=== PATIENT | female | born 1975 | race Caucasian/White ===

== ENCOUNTER 2024-03-13 08:42 | Emergency (ER) | payer OTHER, BC, SELFPAY ==
[2024-03-13] VITALS (9 sets, daily range): BP systolic 90–117; BP diastolic 59–82; BMI 20.8
--- NOTE | 2024-03-13 09:00 | ED.GENMED ---
History of Present Illness
<Heather Alfred PA-C - Last Filed: 03/13/24 16:34>
General
Chief Complaint: Chest Pain
Source: patient
Exam Limitations: none
Time Seen by Provider: 03/13/24 09:00
Nursing documentation reviewed up to this point in time: agreed with
Travel History
Have you had any contact with someone who has COVID-19?: No
Do you have any symptoms of coronavirus? Fever > 100 degrees, chills, cough, shortness of breath, sore throat, loss of taste or smell, muscle aches, or headache?: No
History of Present Illness
History of Present Illness:
This is a 48 y/o female with a PMH of cardiomyopathy, SCAD presenting emergency department today with concerns of chest pain. Patient states that she feels the pain in the middle of her chest and she states that this pain is worse with
walking or when taking a deep breath. Patient also states that when she takes a deep breath she notes is a lot of coughing. Patient states that she does not feel necessarily sick, denies any other cough or cold-like symptoms, denies any other
fevers. Patient also states that is worse if she presses on the area. Patient denies shortness of breath, any recent long distance travel, any pain or swelling her legs, any family history of cardiac disease. In terms of her history of scad,
patient does not recall which inspector welded parts she saw in management she states that she did see someone from [place] and has since been cleared and no longer takes any medication daily. Patient states that the pain is worse with twisting. Patient
denies any history of trauma.
Past History
<Heather Alfred PA-C - Last Filed: 03/13/24 16:34>
Past History
ED Past Medical History: None
ED Past Surgical History: None
Social History
Tobacco: Non-smoker
Alcohol: None
Review of Systems
<Heather Alfred PA-C - Last Filed: 03/13/24 16:34>
Review of Systems
All Other Systems: ROS reviewed and negative except as documented in HPI and ROS
Phy Exam
<YESSY Stone Last Filed: 03/13/24 16:34>
Physical Exam
Physical Exam:
General: Patient is well appearing and in no acute distress; non-toxic
Skin: Warm and dry, no rashes or lesions
Head: Normocephalic, atraumatic
Eyes: Sclera non-icteric. EOMs intact. PERRLA.
Cardiac: Regular rate and rhythm, no murmurs.
Peripheral Vascular: No lower extremity swelling or edema
Pulm: Normal respiratory, no tachypnea. Deep breaths elicits coughing.
Abdomen: No abdominal tenderness to palpation
Musculoskeletal: There is moderate tenderness palpation of the external chest wall over the sternum. No tenderness over the ribs, no crepitus.
Neuro: CN II-XII intact, no focal neurologic deficits.
Psychiatric: Appropriate mood and affect.
Scores
<Heather Alfred PA-C - Last Filed: 03/13/24 16:34>
Heart Score for Chest Pain Patients
STEMI patient?: No
History: Slightly or Non-Suspicious
ECG: Normal
Age: >45 - <65 years
Risk Factors: >/= 3 Risk Factors or History of CAD
Troponin: </= Normal Limit
Heart Score for Chest Pain Patients: 3
Heart Score Risk: 2.5% MACE over next 6 weeks
<Karson Aggarwal DO - Last Filed: 03/13/24 09:57>
Heart Score for Chest Pain Patients
Heart Score for Chest Pain Patients: 3
Heart Score Risk: 2.5% MACE over next 6 weeks
Course
<Heather Alfred PA-C - Last Filed: 03/13/24 16:34>
Orders/Labs/Results
Orders:
Orders
03/13/24
Electrocardiogram (*1) Stat
Comment: DONE EMR
03/13/24 09:09
Comprehensive Metabolic Panel Urgent
03/13/24 09:10
Complete Blood Count/With Diff Urgent
Troponin I Urgent
03/13/24 09:20
D-Dimer Urgent
CR Chest - 2 Views Urgent
Comment:
Reason For Exam: shortness of breath, chest pain
03/13/24 09:53
CT Chest Pe Study Urgent
Comment:
Reason For Exam: chest pain, elevated ddimer
03/13/24 11:19
CT Abd/pel W Iv And Oral Contr Urgent
Comment:
Reason For Exam: splenomegaly, lymphadenopathy
Iohexol [Omnipaque] See Protocol PO NOW STA
03/13/24 14:21
Electrocardiogram (*1) Urgent
Reason for Study: Chest Pain
EKG- Treatment ONCE
03/13/24 14:44
Troponin I Urgent
Abnormal Lab Results
03/13/24 03/13/24 03/13/24
09:09 09:10 09:20
RBC 3.63 L 10^6/uL
(4.20-5.40)
Hgb 10.6 L g/dL
(12.0-16.0)
Hct 31.7 L %
(37.0-47.0)
MPV 11.8 H fL
(7.4-10.4)
Absolute Lymphs (auto) 0.9 L 10^3/uL
(1.2-3.4)
Lymphocytes % 15.9 L %
(20.5-51.1)
D-Dimer 1.80 H ug/mlFEU
(0.00-0.50)
Total Protein 6.1 L g/dl
(6.3-8.2)
Albumin 3.4 L g/dl
(3.5-5.0)
03/13/24 09:10
03/13/24 09:09
Vital Signs
Initial and Last Documented VS:
Initial Vital Signs
Temp Pulse Resp BP Pulse Ox
98.0 F 95 18 117/75 97
03/13/24 08:44 03/13/24 08:44 03/13/24 08:44 03/13/24 08:44 03/13/24 08:44
Last Documented Vital Signs
Temp Pulse Resp BP Pulse Ox
98.0 F 74 27 97/68 98
03/13/24 08:44 03/13/24 15:45 03/13/24 15:45 03/13/24 15:00 03/13/24 15:45
<Karson Aggarwal, DO - Last Filed: 03/13/24 09:57>
Orders/Labs/Results
Orders:
Orders
03/13/24
Electrocardiogram (*1) Stat
Comment: DONE EMR
03/13/24 09:09
Comprehensive Metabolic Panel Urgent
03/13/24 09:10
Complete Blood Count/With Diff Urgent
Troponin I Urgent
03/13/24 09:20
D-Dimer Urgent
CR Chest - 2 Views Urgent
Comment:
Reason For Exam: shortness of breath, chest pain
03/13/24 09:53
CT Chest Pe Study Urgent
Comment:
Reason For Exam: chest pain, elevated ddimer
03/13/24 11:19
CT Abd/pel W Iv And Oral Contr Urgent
Comment:
Reason For Exam: splenomegaly, lymphadenopathy
Iohexol [Omnipaque] See Protocol PO NOW STA
03/13/24 14:21
Electrocardiogram (*1) Urgent
Reason for Study: Chest Pain
EKG- Treatment ONCE
03/13/24 14:44
Troponin I Urgent
Abnormal Lab Results
03/13/24 03/13/24 03/13/24
09:09 09:10 09:20
RBC 3.63 L 10^6/uL
(4.20-5.40)
Hgb 10.6 L g/dL
(12.0-16.0)
Hct 31.7 L %
(37.0-47.0)
MPV 11.8 H fL
(7.4-10.4)
Absolute Lymphs (auto) 0.9 L 10^3/uL
(1.2-3.4)
Lymphocytes % 15.9 L %
(20.5-51.1)
D-Dimer 1.80 H ug/mlFEU
(0.00-0.50)
Total Protein 6.1 L g/dl
(6.3-8.2)
Albumin 3.4 L g/dl
(3.5-5.0)
03/13/24 09:10
03/13/24 09:09
Vital Signs
Initial and Last Documented VS:
Initial Vital Signs
Temp Pulse Resp BP Pulse Ox
98.0 F 95 18 117/75 97
03/13/24 08:44 03/13/24 08:44 03/13/24 08:44 03/13/24 08:44 03/13/24 08:44
Last Documented Vital Signs
Temp Pulse Resp BP Pulse Ox
98.0 F 74 27 97/68 98
03/13/24 08:44 03/13/24 15:45 03/13/24 15:45 03/13/24 15:00 03/13/24 15:45
Kellylt;Heather Alfred PA-C - Last Filed: 03/13/24 16:34>
MDM/Problems Addressed
Differential Diagnosis Includes:
Differentials include ACS, musculoskeletal sprain/strain, costochondritis, pneumothorax, pneumonia, pulmonary embolus
MDM/Problems Addressed:
Chest pain
Chronic conditions affecting care:
Cardiomyopathy , spontaneous coronary artery dissection, iron deficiency anemnia
Acute Exacerbation and/or Progression of Chronic Illness:
hx of CAD
<Heather Alfred PA-C - Last Filed: 03/13/24 16:34>
*Pulse Oximetry
Patient hypoxic: no
*EKG
Interpreted by ED Provider?: Yes
EKG Intrepretation Date: 03/13/24
Interpretation: normal
Comparison EKG: changes noted (no longer non specific ST segment changes)
Heart Rate: 82
Rate: normal
Rhythm: sinus
[place]: normal axis
Interval: normal interval, normal QT interval and normal WA interval
QRS Pattern: normal QRS
Ischemia: no ischemia
*Critical Care Note
Total Time (30-74mins, 75-104mins- exclusive of procedures): Not Applicable
Data Reviewed
Review of Other/Old Records Reveals: Records (Reviewed ER physician documentation from 07/17/2019)
Source: patient
<Heather Alfred PA-C - Last Filed: 03/13/24 16:34>
Patient Management
Escalation/DeEscalation of care consider admission/obs:
This is a 48 y/o female with a PMH of cardiomyopathy, SCAD presenting emergency department today with concerns of chest pain. Patient states that she feels the pain in the middle of her chest and she states that this pain is worse with
walking or when taking a deep breath. Her vitals are stable. She is well-appearing on exam, does have tenderness palpation external chest wall, no murmurs heard. No lower extremity lymphedema, breath sounds equal on both sides bilaterally with no
adventitious lung sounds. D-dimer elevated, proceeded with CT of the chest which was negative for PE but did demonstrate concerning splenomegaly. CT of the abdomen was ordered for follow-up which demonstrated a retroperitoneal lymph node mass
concerning for lymphoma. Discussed these findings with patient, she will follow up urgently with heme-onc. I discussed using ibuprofen to help manage her pain and to follow-up with cardiology should her symptoms persist. Patient stable for
discharge. Repeat troponin not elevated, repeat EKG normal sinus.
<Heather Alfred PA-C - Last Filed: 03/13/24 16:34>
Update Note
Update Note:
CT chest concerning for splenomegaly and lymphadenopathy. CT abdomen obtained.

2:55 pm--updated on CT abdomen findings, there appears to be a bulky retroperitoneal lymph node mass most consistent with lymphoma until proven otherwise
ED Attending Note
<Heather Alfred PA-C - Last Filed: 03/13/24 16:34>
-
Portions of this chart may have been created with voice recognition software.� Occasional wrong word or��sound alike� substitutions may have occurred due to the inherent limitations of voice recognition software.
<Karson Aggarwal, - Last Filed: 03/13/24 09:57>
ED Attending Note
Patient seen and examined by attending physician: Yes
I performed a history and physical exam of patient and discussed management with resident, I reviewed resident's note and agree with documented findings and plan of care.: Yes
ED Attending Note:
I reviewed and agree with history and treatment plan by Heather Alfred. My exam revealed
Physical Exam
General: no apparent distress, not acutely ill
Neck: supple. no meningeal signs. normal posterior pharynx
Heart: s1/s2 regular rate and rhythm, no murmur. equal radial
pulses.
HEENT: Pupils equal round reactive to light, EOMI
Lungs: no acute respiratory distress. clear bilaterally, chest wall tender to palpation, reproducing pain
Abdomen: normal bowel sounds. not tender. no CVAT
Neuro: alert and oriented. no focal neurological deficits cranial nerves II through XII intact
Skin: no rash
Psychiatric: well kept. interactive and cooperative
Extremities: no edema. no calf tenderness. negative homans. good distal pulses
Discharge Plan
Departure
Patient Disposition: Home (Routine Discharge)
Date of Disposition: 03/13/24
Time of Disposition: 15:58
Patient with high blood pressure during this ER visit?: No
Condition: Good
Discharge Problem:
Chest pain, Neoplasm of retroperitoneal lymph nodes
Instructions: Chest pain
Prescriptions:
No Action
pediatric multivitamin no.17 1 TABLET tablet,chewable
1 ea PO DAILY
atorvastatin 80 MG tablet
80 mg PO QPM Qty: 30 3RF
clopidogrel 75 MG tablet
75 mg PO DAILY Qty: 30 11RF
nitroglycerin 0.4 MG tablet, sublingual
0.4 mg sublingual Q5MPRN PRN (Reason: CHEST PAIN) Qty: 1 0RF
aspirin 81 MG tablet,chewable
81 mg PO DAILY Qty: 30 0RF
metoprolol tartrate 25 MG tablet
25 mg PO BID Qty: 60 3RF
Referrals:
Criselda Rizzo DO [Active] - Call in 1-3 days for appt
NONE,* [Family Provider] -
Kurt Rojas MD [Active] - Call in 1-3 days for appt
Activity Restrictions/Additional Instructions:
PLEASE CALL DR. RIZZO OFFICE TOMORROW and YOUR PRIMARY CARE PROVIDER:
Please call the heme onc office and say you were seen here in the emergency department. Your CT scan of the abdomen and pelvis demonstrates enlargement of the spleen and enlarged lymph nodes in the abdomen, biopsy and PET scan is recommended for
follow up.
Please follow up with your inspector welded parts should your symptoms persist.
PLEASE RETURN TO THE EMERGENCY DEPARTMENT FOR ANY CONCERNS
Interventions
Interventions:
*Risk Screen - Suicide Last Done: 03/13/24 08:44
*General Assessment Last Done: 03/13/24 09:23
*Neglect/Abuse Screening Last Done: 03/13/24 08:44
ED- Fall Risk Assessment Last Done: 03/13/24 16:28
*ED COVID-19 Vaccine History Last Done: 03/13/24 08:44
*Nursing Disposition Last Done: 03/13/24 16:28
ED- Cardiac Assessment Last Done: 03/13/24 09:23
Discharge Date and Time
Print Language: ALBANIAN
[2024-03-13 09:41] LABS: ALT (SGPT) 15 U/L (0-35); AST (SGOT) 25 U/L (14-36); Albumin 3.4 g/dl (3.5-5.0); Alkaline Phosphatase 62 U/L (38-126); Blood Urea Nitrogen 10 mg/dl (7-17); Calcium 9.1 mg/dl (8.4-10.2); Carbon Dioxide 28 mmol/L (22-30); Chloride 105 mmol/L (98-107); Estimated Creatinine Clearance 102 ml/min; Glucose 86 mg/dl (70-99); Potassium 3.6 mmol/L (3.5-5.1); Sodium 140 mmol/L (135-145); Total Bilirubin 0.6 mg/dl (0.2-1.3); Total Protein 6.1 g/dl (6.3-8.2); eGFR > 60.00
[2024-03-13 09:51] LABS: Troponin I < 0.012 ng/ml
[2024-03-13 10:00] LABS: % Basophils 0.5 % (0-2); % Eosinophils 5.2 % (0-6); % Immature Granulocytes 0.3 % (0-0.5); % Lymphocytes 15.9 % (20.5-51.1); % Monocytes 9.1 % (1.7-9.3); Absolute Eosinophils 0.3 10^3/uL (0-0.7); Absolute Lymphocytes 0.9 10^3/uL (1.2-3.4); Absolute Monocytes 0.5 10^3/uL (0.1-0.6); Hematocrit 31.7 % (37.0-47.0); Hemoglobin 10.6 g/dL (12.0-16.0); Mean Corp Hgb Conc. 33.4 g/dL (33.0-37.0); Mean Corpuscular Hgb 29.2 pg (27.0-31.0); Mean Corpuscular Volume 87.3 fL (81.0-99.0); Mean Platelet Volume 11.8 fL (7.4-10.4); Nucleated Red Blood Cells % 0 %; Platelet Count 178 10^3/uL (130-400); Red Blood Cell Count 3.63 10^6/uL (4.20-5.40); Red Cell Dist. Width 12.7 % (11.5-14.5); White Blood Cell Count 5.8 10^3/uL (4.8-10.8)
[2024-03-13] MEDS: OMNIPAQUE 50 ML PO (11:39)
[2024-03-13 15:40] LABS: Troponin I < 0.012 ng/ml
== END 2024-03-13 16:30 | disposition home or self-care (01) ==
LOC: EMR 08:42
PROVIDERS: Physician Assistant; EMERGENCY PHYSICIAN Emergency Medicine
DX: R07.89 Other chest pain (principal); D49.0 Neoplasm of unspecified behavior of digestive system; I25.10 Atherosclerotic heart disease of native coronary artery without angina pectoris; I25.2 Old myocardial infarction; I25.42 Coronary artery dissection
CPT/HCPCS: 99284; 71046; 71275; 74177; 80053; 84484; 85025; 85379; 93005; Q9967

== ENCOUNTER 2024-04-10 06:28 | Day surgery (SDC) | payer OTHER, BC, SELFPAY ==
[2024-04-02 12:20] VITALS: BMI 20.7
[2024-04-10] VITALS (8 sets, daily range): BP systolic 100–122; BP diastolic 59–82; BMI 20.7
[2024-04-10] MEDS: TYLENOL 1000 MG PO (11:10)
[2024-04-10] MEDS: NORMOSOL-R 1000 IV (11:22)
[2024-04-10 18:06] LABS: Hematocrit 28.2 % (37.0-47.0); Hemoglobin 9.9 g/dL (12.0-16.0); Mean Corp Hgb Conc. 35.1 g/dL (33.0-37.0); Mean Corpuscular Hgb 28.6 pg (27.0-31.0); Mean Corpuscular Volume 81.5 fL (81.0-99.0); Platelet Count 105 10^3/uL (130-400); Red Blood Cell Count 3.46 10^6/uL (4.20-5.40); White Blood Cell Count 6.2 10^3/uL (4.8-10.8)
== END 2024-04-10 19:27 | disposition home or self-care (01) ==
LOC: SDS 06:28
PROVIDERS: ATTENDING PHYSICIAN Surgery
DX: R59.0 Localized enlarged lymph nodes (principal); C85.96 Non-Hodgkin lymphoma, unspecified, intrapelvic lymph nodes; C85.93 Non-Hodgkin lymphoma, unspecified, intra-abdominal lymph nodes
CPT/HCPCS: 38570; 88305; 36415; 85027; 86850; 86900; 86901; 88333; 88341; 88342; 88365

== ENCOUNTER 2024-04-15 12:53 | Emergency (ER) | payer OTHER, BC, SELFPAY ==
[2024-04-15 13:52] VITALS: BMI 18.5
--- NOTE | 2024-04-15 13:56 | EDRN ---
Gilberto SMART in room w/ pt.
--- NOTE | 2024-04-15 14:01 | ED.GENMED ---
History of Present Illness
<Sofi Wang PA-C - Last Filed: 04/16/24 08:53>
General
Chief Complaint: Abdominal Pain
Source: patient and records
Time Seen by Provider: 04/15/24 13:51
History of Present Illness
History of Present Illness:
48yoF currently being worked up for lymphoma presenting with her for evaluation of abdominal pain. Patient underwent robotic retroperitoneal lymph node biopsy and excision on 04/10/[address] Scanlon. There was mild hemoperitoneum during
the procedure and she was discharged the same day. The procedure was performed due to retroperitoneal lymphadenopathy. Patient is presenting today with generalized abdominal pain which is severe at times. She was prescribed oxycodone which she
discontinued due to side effects. She has been taking Advil for her pain without any significant improvement. Patient had 2-3 episodes of vomiting today. She is otherwise asymptomatic and denies any fevers, chills, dysuria, diarrhea,
constipation, chest pain.
Past History
<Sofi Wang PA-C - Last Filed: 04/16/24 08:53>
Past History
ED Past Medical History: None
ED Past Surgical History: None
Social History
Tobacco: Non-smoker
Alcohol: None
Phy Exam
<Sofi Wang PA-C - Last Filed: 04/16/24 08:53>
Physical Exam
Physical Exam:
Appears uncomfortable, non-toxic
General Physical Exam
General Presentation: moderate distress
General age: appears stated age
General Skin: warm and dry
General Habitus: normal
General Mental: alert
General Hydration: appears well hydrated
Cardiovascular Exam
Cardiovascular Exam: regular rate/rhythm and no murmur
Pulmonary Exam
Pulmonary Exam: lungs clear, no respiratory distress, no crackles and no wheezing
Gastrointestinal Exam
Gastrointestinal Exam: soft, non distended, guarding (voluntary) and other (Surgical incisions c/d/i)
Palpation: left upper quadrant: Severe tenderness and right upper quadrant: Severe tenderness
Course
Kellylt;Sofi Wang PA-C - Last Filed: 04/16/24 08:53>
Orders/Labs/Results
Orders:
Orders
04/15/24 13:59
0.9% Sodium Chloride 1000 ml [Nss] 1,000 ml IV BOLUS
HYDROmorphone [Dilaudid] 0.5 mg IV NOW STA
Ondansetron Injectable [Zofran] 4 mg IV NOW STA
04/15/24 14:00
CT Abd/pelvis W Iv Cont Urgent
Comment:
Reason For Exam: Generalized abd pain, s/p lymph node biopsy
Test Result ONCE
04/15/24 14:07
Complete Blood Count/With Diff Urgent
Comprehensive Metabolic Panel Urgent
HCG, Serum Qualitative Screen Urgent
Lipase Urgent
04/15/24 14:22
Lactate Level [Lactic Acid] Urgent
04/15/24 16:56
HYDROmorphone [Dilaudid] 1 mg .ROUTE .STK-MED ONE
04/15/24 16:58
HYDROmorphone [Dilaudid] 1 mg IV NOW STA
Abnormal Lab Results
04/15/24
14:07
RBC 3.75 L 10^6/uL
(4.20-5.40)
Hgb 10.5 L g/dL
(12.0-16.0)
Hct 31.6 L %
(37.0-47.0)
MPV 12.0 H fL
(7.4-10.4)
Absolute Monos (auto) 0.7 H 10^3/uL
(0.1-0.6)
Lymphocytes % 17.3 L %
(20.5-51.1)
Eosinophils % 7.1 H %
(0-6)
Carbon Dioxide 31 H mmol/L
(22-30)
Total Protein 6.1 L g/dl
(6.3-8.2)
04/15/24 14:07
04/15/24 14:07
Vital Signs
Initial and Last Documented VS:
Initial Vital Signs
Temp Pulse Pulse Ox
98.2 F 96 97
04/15/24 12:58 04/15/24 12:58 04/15/24 12:58
Last Documented Vital Signs
Temp Pulse Resp BP Pulse Ox
98.2 F 91 14 120/69 99
04/15/24 12:58 04/15/24 18:01 04/15/24 18:01 04/15/24 18:01 04/15/24 18:01
<Kwesi Howe PA-C - Last Filed: 04/15/24 22:52>
Orders/Labs/Results
Orders:
Orders
04/15/24 13:59
0.9% Sodium Chloride 1000 ml [Nss] 1,000 ml IV BOLUS
HYDROmorphone [Dilaudid] 0.5 mg IV NOW STA
Ondansetron Injectable [Zofran] 4 mg IV NOW STA
04/15/24 14:00
CT Abd/pelvis W Iv Cont Urgent
Comment:
Reason For Exam: Generalized abd pain, s/p lymph node biopsy
Test Result ONCE
04/15/24 14:07
Complete Blood Count/With Diff Urgent
Comprehensive Metabolic Panel Urgent
HCG, Serum Qualitative Screen Urgent
Lipase Urgent
04/15/24 14:22
Lactate Level [Lactic Acid] Urgent
04/15/24 16:56
HYDROmorphone [Dilaudid] 1 mg .ROUTE .STK-MED ONE
04/15/24 16:58
HYDROmorphone [Dilaudid] 1 mg IV NOW STA
Abnormal Lab Results
04/15/24
14:07
RBC 3.75 L 10^6/uL
(4.20-5.40)
Hgb 10.5 L g/dL
(12.0-16.0)
Hct 31.6 L %
(37.0-47.0)
MPV 12.0 H fL
(7.4-10.4)
Absolute Monos (auto) 0.7 H 10^3/uL
(0.1-0.6)
Lymphocytes % 17.3 L %
(20.5-51.1)
Eosinophils % 7.1 H %
(0-6)
Carbon Dioxide 31 H mmol/L
(22-30)
Total Protein 6.1 L g/dl
(6.3-8.2)
04/15/24 14:07
04/15/24 14:07
Vital Signs
Initial and Last Documented VS:
Initial Vital Signs
Temp Pulse Pulse Ox
98.2 F 96 97
04/15/24 12:58 04/15/24 12:58 04/15/24 12:58
Last Documented Vital Signs
Temp Pulse Resp BP Pulse Ox
98.2 F 91 14 120/69 99
04/15/24 12:58 04/15/24 18:01 04/15/24 18:01 04/15/24 18:01 04/15/24 18:01
Kellylt;Sofi Wang PA-C - Last Filed: 04/16/24 08:53>
MDM/Problems Addressed
Differential Diagnosis Includes:
48yoF here with abdominal pain. Recent retroperitoneal lymph node biopsy/excision 5 days ago. Also c/o vomiting. She is afebrile and hemodynamically stable. She appears uncomfortable but is non-toxic. There is voluntary guarding on abdominal exam.
Differential diagnosis includes but is not limited to: postoperative pain, postoperative hematoma/infection, cancer related pain, SBO
Initial ED plan: Check abdominal labs, lactate, HCG, and CT abdomen. IV Dilaudid, Zofran, and fluid bolus for symptoms.
<Kwesi Howe PA-C - Last Filed: 04/15/24 22:52>
*Critical Care Note
Total Time (30-74mins, 75-104mins- exclusive of procedures): Not Applicable
<Kwesi Howe PA-C - Last Filed: 04/15/24 22:52>
Update Note
Update Note:
Assumed care of this patient from Sofi Wang PA-C pending CT scan.
Scan results w/o obvious findings to explain uncontrolled pain. Has received 1.5mg IV hydromorphone with occasional relief but remains in pain. Unclear etiology. Discussed options of admit for pain control and further workup vs discharge on further
opiate therapy. As PO oxycodone has not provided her w/ relief, pt opts for admission. Will admit to hospitalist service.
D/W hospitalist, not accepting admission due to lack of medical need. Will d/c on 4mg hydromorphone, recommend onc f/u for pain discussion
ED Attending Note
<Sofi Wang PA-C - Last Filed: 04/16/24 08:53>
-
Portions of this chart may have been created with voice recognition software.� Occasional wrong word or��sound alike� substitutions may have occurred due to the inherent limitations of voice recognition software.
Discharge Plan
Departure
Patient Disposition: Home (Routine Discharge)
Date of Disposition: 04/15/24
Time of Disposition: 18:09
Patient with high blood pressure during this ER visit?: No
Discharge Problem:
Intractable abdominal pain, Lymphadenopathy, retroperitoneal
Instructions: Abdominal Pain
Prescriptions:
New
ondansetron 4 mg tablet,disintegrating
4 mg PO TIDPRN PRN (Reason: nausea/vomiting) Qty: 20 0RF
hydromorphone 4 mg tablet
4 mg PO Q6H PRN (Reason: Pain) Qty: 20 0RF
Referrals:
NONE,* [Family Provider] -
Activity Restrictions/Additional Instructions:
Follow-up with your oncology team regarding further pain management
Interventions
Interventions:
*Risk Screen - Suicide Last Done: 04/15/24 12:58
*General Assessment Last Done: 04/15/24 12:58
*Neglect/Abuse Screening Last Done: 04/15/24 12:58
ED- Fall Risk Assessment Last Done: 04/15/24 13:53
*ED COVID-19 Vaccine History Last Done: 04/15/24 13:53
*Nursing Disposition Last Done: 04/15/24 19:05
KL-Fdvcrr-Yedkcvtlct Assessment Last Done: 04/15/24 14:00
Discharge Date and Time
Discharge Date/Time: 04/15/24 19:06
Print Language: MALAGASY
[2024-04-15] MEDS: NSS 1000 IV (14:17)
[2024-04-15] MEDS: ZOFRAN 4 MG IV (14:17)
[2024-04-15] MEDS: DILAUDID 0.5 MG IV (14:17)
[2024-04-15 14:28] LABS: HCG, Serum Qualitative Screen Negative
[2024-04-15 14:34] LABS: ALT (SGPT) 20 U/L (0-35); AST (SGOT) 32 U/L (14-36); Albumin 3.7 g/dl (3.5-5.0); Alkaline Phosphatase 76 U/L (38-126); Blood Urea Nitrogen 10 mg/dl (7-17); Calcium 8.9 mg/dl (8.4-10.2); Carbon Dioxide 31 mmol/L (22-30); Chloride 103 mmol/L (98-107); Estimated Creatinine Clearance 103 ml/min; Glucose 98 mg/dl (70-99); Lipase 63 U/L (23-300); Potassium 4.2 mmol/L (3.5-5.1); Sodium 137 mmol/L (135-145); Total Bilirubin 0.6 mg/dl (0.2-1.3); Total Protein 6.1 g/dl (6.3-8.2); eGFR > 60.00
[2024-04-15 14:40] VITALS: BP 118/71
[2024-04-15 14:47] LABS: Lactic Acid 0.8 mmol/L (0.7-2.0)
[2024-04-15 15:00] LABS: % Basophils 0.4 % (0-2); % Eosinophils 7.1 % (0-6); % Immature Granulocytes 0.4 % (0-0.5); % Lymphocytes 17.3 % (20.5-51.1); % Monocytes 9.3 % (1.7-9.3); % Neutrophils 65.5 % (42.2-75.2); Absolute Eosinophils 0.5 10^3/uL (0-0.7); Absolute Lymphocytes 1.2 10^3/uL (1.2-3.4); Absolute Monocytes 0.7 10^3/uL (0.1-0.6); Absolute Neutrophils 4.6 10^3/uL (1.4-6.5); Hematocrit 31.6 % (37.0-47.0); Hemoglobin 10.5 g/dL (12.0-16.0); Mean Corp Hgb Conc. 33.2 g/dL (33.0-37.0); Mean Corpuscular Volume 84.3 fL (81.0-99.0); Nucleated Red Blood Cells % 0 %; Platelet Count 177 10^3/uL (130-400); Red Blood Cell Count 3.75 10^6/uL (4.20-5.40); Red Cell Dist. Width 13.4 % (11.5-14.5)
[2024-04-15 16:45] VITALS: BP 128/70
--- NOTE | 2024-04-15 16:49 | EDRN ---
Pt returned from [facility] w/ assist of spouse.
--- NOTE | 2024-04-15 16:53 | EDRN ---
Pt is in extreme L flank pain at this time (one of the biopsy sites). Mandi SMART was notified and putting in for pain medication at this time. Pt is awaiting CT results at this time.
[2024-04-15 16:55] VITALS: BP 123/85
[2024-04-15] MEDS: DILAUDID 1 MG IV (16:58)
--- NOTE | 2024-04-15 17:57 | EDRN ---
Pt voiced to me a fear of discharge and pain continuing in the severity that it was prior to coming to ER. Mandi SMART in to see pt and pt voiced this fear to him as well.
[2024-04-15 18:01] VITALS: BP 120/69
== END 2024-04-15 19:06 | disposition home or self-care (01) ==
LOC: EMR 12:53
PROVIDERS: Physician Assistant; EMERGENCY PHYSICIAN Emergency Medicine
DX: R10.84 Generalized abdominal pain (principal); R59.0 Localized enlarged lymph nodes
CPT/HCPCS: 99284; 96374; 96375; 96376; 96361; 74177; 80053; 83605; 83690; 84703; 85025; Q9967

== ENCOUNTER 2024-04-17 23:38 | Inpatient (IN) | payer OTHER, BC, SELFPAY ==
[2024-04-17 19:59] VITALS: BP 124/86; BMI 20.3
[2024-04-17 20:55] VITALS: BP 130/85
[2024-04-17 22:04] VITALS: BP 130/85
--- NOTE | 2024-04-17 22:22 | ED.GENMED ---
History of Present Illness
General
Chief Complaint: Generalized Pain
Source: patient, spouse, previous radiology exam (CT abdomen pelvis from 2 days ago) and previous hospital records (ED visit from 2 days ago for similar complaint.)
Exam Limitations: none
Time Seen by Provider: 04/17/24 22:06
Nursing documentation reviewed up to this point in time: agreed with
History of Present Illness
History of Present Illness:
This is a 48-year-old woman who has history of cardiomyopathy in 2008 as well as spontaneous coronary artery dissection 2018. She complains of several week history of progressive generalized abdominal as well as generalized back pain,
left flank pain that has been slowly progressive over the past several weeks. Found to have intra-abdominal as well as retroperitoneal adenopathy on CT abdomen pelvis during ED visit March 13 when she presented for chest pain. She has been
following with oncology, Dr. Us and underwent retroperitoneal lymph node biopsy on April 10.
Pathology report returned today revealing large B-cell lymphoma.
She had been prescribed Oxy IR 10 mg tablets April 05 by her oncologist but reports no improvement in pain with oxycodone. No relief with Advil as well.
She was evaluated in this ED just 2 days ago with complaints of severe abdominal as well as back pain accompanied with intermittent nausea and vomiting. Laboratory studies unremarkable. Mild anemia slightly improved from previous. Normal lactic
acid.
CT abdomen pelvis 2 days ago showing massive intra-abdominal as well as retroperitoneal adenopathy.
She was afforded mild to moderate relief during ED visit 2 days ago with IV Dilaudid and was discharged to home with a prescription for Dilaudid 4 mg tablets which unfortunately are unavailable at her local [facility] and apparently unavailable at all
other nearby [facility] pharmacies.
With persistent, worsening pain, persistent nausea, poor oral intake she has been sent to the ED by her oncologist for acute hospitalization for pain control and plan to initiate further workup and treatment for lymphoma.
She has not had a fever nor chills. She does admit to some constipation, thus far no improvement with once daily MiraLAX. No dysuria urgency or hematuria. She denies rectal pain or pressure.
Past History
Past History
ED Past Medical History: Cancer (Large B-cell lymphoma), [place] (July 2019 related to spontaneous coronary artery dissection) and Other ( cardiomyopathy 2008.)
ED Past Surgical History: Cardiac (Cardiac catheterization July 2019 showing SCAD of circumflex) and Other (Retroperitoneal lymph node biopsy April 10, 2024)
Social History
Tobacco: Non-smoker
Alcohol: None
Drug: None
Personal:
Living: with family
Employment: Employed
Family History
Family History: Diabetes (Father)
Phy Exam
Physical Exam
Physical Exam:
GENERAL: 48-year-old woman appears her stated age, awake and alert, appears in mild to moderate distress related to pain. Intermittently wincing in pain and grabbing at her left posterior flank region. Easily communicative. Emesis basin at the
ready. is accompanying.
EYE: anicteric
NECK: Supple, nontender, no meningismus, no significant adenopathy.
ENT: posterior pharynx is clear, oral mucosa is mildly to moderately dry. No rhinorrhea.
CARDIAC: Regular rate and rhythm. no murmur.
LUNGS: Splinting and wincing in pain with attempted deep inspiration. No respiratory distress. Mildly decreased breath sounds at right base otherwise clear to auscultation.
ABDOMEN: Minimally distended, mildly firm with exquisite tenderness generalized to the mid upper abdomen, no rebound nor guarding. Moderate left CVA tenderness with percussion. Without focal tenderness, normoactive BS.
NEUROLOGICAL: Alert and oriented x3, no focal neuro deficits.
SKIN: Warm and dry, normal color, skin intact. No rash.
MUSCULOSKELETAL: No C/C/E. peripheral pulses are full and equal b/l. No palpable tenderness.
PSYCH: Normal and appropriate interaction.
Course
Orders/Labs/Results
Orders:
Orders
04/17/24 22:21
0.9% Sodium Chloride 1000 ml [Nss] 1,000 ml IV BOLUS
HYDROmorphone [Dilaudid] 1 mg IV NOW STA
Ondansetron Injectable [Zofran] 4 mg IV NOW STA
04/17/24 22:39
Comprehensive Metabolic Panel Urgent
Vital Signs
Initial and Last Documented VS:
Initial Vital Signs
Temp Pulse Resp BP Pulse Ox
98.5 F 95 18 124/86 96
04/17/24 19:59 04/17/24 19:59 04/17/24 19:59 04/17/24 19:59 04/17/24 19:59
Last Documented Vital Signs
Temp Pulse Resp BP Pulse Ox
98.5 F 89 18 131/91 96
04/17/24 19:59 04/17/24 22:04 04/17/24 22:04 04/17/24 22:39 04/17/24 22:04
MDM/Problems Addressed
Differential Diagnosis Includes:
Patient presents with progressive severe/intractable abdominal as well as back pain. Progressive over the past month, severe and unrelenting over the past week or so.
CT abdomen pelvis showing massive intra-abdominal as well as retroperitoneal bulky adenopathy with lymph node biopsy 1 week ago resulted today showing large B-cell lymphoma.
No improvement in pain with oxycodone 10 mg nor ibuprofen.
Mild improvement in pain with IV Dilaudid however Dilaudid tablets at least 4 mg tablets not available at [facility] pharmacies.
She has had persistent nausea, intermittent vomiting and clinically appears mildly to moderately dehydrated.
Laboratory studies unremarkable 2 days ago save for mild but improving anemia. Will recheck CMP.
Will initiate IV fluids, IV Dilaudid, IV Zofran and plan to admit to hospitalist service for continued pain control.
Due to rapid progression of symptoms over the past month, patient will require urgent initiation of definitive treatment for her lymphoma.
She has remote history of cardiomyopathy with a EF of 5 to 10% with full recovery of EF.
History of non-STEMI related to SCAD 2019.
Chronic conditions affecting care: CAD (Spontaneous coronary artery dissection July 2019), Cardiomyopathy (Prior history of -recovered) and Cancer
*Radiology
Radiology exam reviewed: radiology read reviewed (CT abdomen and pelvis from 2 days ago)
*Pulse Oximetry
Patient hypoxic: no
*Critical Care Note
Total Time (30-74mins, 75-104mins- exclusive of procedures): Not Applicable
ED Attending Note
-
Portions of this chart may have been created with voice recognition software.� Occasional wrong word or��sound alike� substitutions may have occurred due to the inherent limitations of voice recognition software.
Discharge Plan
Departure
Patient Disposition: Admit
Date of Disposition: 04/17/24
Time of Disposition: 22:27
Admit to: Med/Surg
Admit to doctor: Edd
Presentation/result/management discussed w/ accepting MD/DO: Hospitalist
Condition: Fair
Discharge Problem:
Diffuse large B-cell lymphoma of intra-abdominal lymph nodes, Intractable cancer-related pain, Intractable nausea and vomiting
Prescriptions:
No Action
ondansetron 4 mg tablet,disintegrating
4 mg PO TIDPRN PRN (Reason: nausea/vomiting) Qty: 20 0RF
hydromorphone 4 mg tablet
4 mg PO Q6H PRN (Reason: Pain) Qty: 20 0RF
Interventions
Interventions:
*Risk Screen - Suicide Last Done: 04/17/24 19:59
*General Assessment Last Done: 04/17/24 21:07
*Neglect/Abuse Screening Last Done: 04/17/24 19:59
ED- Fall Risk Assessment Last Done: 04/17/24 19:59
Discharge Date and Time
Print Language: JAPANESE
[2024-04-17] MEDS: ZOFRAN 4 MG IV (22:27)
[2024-04-17] MEDS: NSS 1000 IV (22:27)
[2024-04-17] MEDS: DILAUDID 1 MG IV ×2 (22:27→23:48)
[2024-04-17 22:39] VITALS: BP 131/91
[2024-04-17 23:00] VITALS: BP 118/96
[2024-04-17 23:03] LABS: ALT (SGPT) 16 U/L (0-35); AST (SGOT) 27 U/L (14-36); Albumin 3.7 g/dl (3.5-5.0); Alkaline Phosphatase 73 U/L (38-126); Blood Urea Nitrogen 14 mg/dl (7-17); Calcium 8.9 mg/dl (8.4-10.2); Carbon Dioxide 26 mmol/L (22-30); Chloride 105 mmol/L (98-107); Estimated Creatinine Clearance 100 ml/min; Glucose 95 mg/dl (70-99); Potassium 3.9 mmol/L (3.5-5.1); Sodium 141 mmol/L (135-145); Total Bilirubin 0.5 mg/dl (0.2-1.3); Total Protein 6.3 g/dl (6.3-8.2); eGFR > 60.00
--- NOTE | 2024-04-17 23:03 | HPS.HSE ---
Family Physician
-
Family Physician: * NONE
Chief Complaint
-
Intractable
History of Present Illness
A pleasant and unfortunate 48-year-old female who recently diagnosed with a large cell lymphoma, presented to the hospital per recommendation of the supervisor cleaning and annealing for pain control.
Had a laparoscopic abdominal lymph node biopsy on April 10, and she was discharged on oxycodone without much relief, look like today oncologist to give you a prescription for Dilaudid 4 mg in the ER on April 15, the pharmacy did not have it and
patient was told to come to the hospital for pain control and possibility of starting chemo and bone marrow biopsy.
She is awake, alert and oriented mild distress and admit the pain is left upper back and moderately severe when they came
And is persistent but worsening with ambulation and walking around, also having some generalized abdominal pain but some of those according to the patient is postoperative changes she has a 4 incision, denies any nausea or vomiting or fever or
chill, denies any urinary or GI symptoms or any hematuria or rectal bleed, no fever or chill or cough or congestion, no chest pain or palpitation,
In the ER received dose of Zofran 1 mg Dilaudid while I was evaluating the patient.
Accompanied by her at the bedside.
She was in the ER on April 15 where she was given Dilaudid prescription as mentioned above
Medical History
Past Medical History
Past Medical History: Reports Other
Additional Past Medical History:
Past medical history:
Recent diagnosis of large cell lymphoma
Social history, denies smoking alcohol use, and she is independent
Family history: Mother had uterine cancers no known history of hematological malignancy in her family.
Past Surgical History: Reports Other
Social History
Unable to obtain full social history at this time due to: Other
Family History
Family History: Other
Allergies / Home Medications
Allergies reflects when Allergies were last updated in [employer].
Home Medications with original date entered in [employer]
Allergy/Medication List:
Allergies
Allergy/AdvReac Type Severity Reaction Status Date / Time
hazelnut Allergy Mild Itching Verified 04/17/24 20:02
No Known Drug Allergies Allergy NA Verified 04/17/24 20:02
Home Medications
hydromorphone 4 mg tablet 4 mg PO Q6H PRN Pain #20 tabs 04/15/24
ondansetron 4 mg disintegrating tablet 4 mg PO TIDPRN PRN nausea/vomiting #20 tabs 04/15/24
allopurinol 300 mg tablet 300 mg PO ONCE 04/17/24
oxycodone 10 mg tablet 5 mg PO Q4HPRN PRN moderate pain 04/17/24
Review of Systems
-
A 12 point ROS was completed and negative except as noted: Yes
Physical Exam
Vital Signs
Vital Signs
Temp Pulse Resp BP Pulse Ox
98.5 F 89 18 131/91 96
04/17/24 19:59 04/17/24 22:04 04/17/24 22:04 04/17/24 22:39 04/17/24 22:04
Physical exam:
General: Awake, alert and oriented x3, looks uncomfortable because of the pain, but not in acute and holds appropriate conversation.
HEENT: No active discharge, ecchymosis or bruising, moist lips, tongue and mucous membrane.
Eyes: No discharge or red conjunctiva, no nystagmus, pupils are reactive and equal
Neck:Supple, no JVD no bruit no goiter.
Respiratory: Normal AP contour and diameter, normal chest wall movement, normal respiratory effort, no respiratory distress,
Lungs: Good air entry bilaterally, no wheezing or rhonchi, no rales or crackles
Heart: S1, S2 regular, normal rate, no added sound.
Gastrointestinal: Positive bowel sounds, soft, nontender, no guarding or rigidity or organomegaly
Musculoskeletal: Tenderness in left upper back with no skin abnormalities,, no chest wall abnormality . All joints and extremities have good range of motion, no muscle tenderness or any joint swelling or tenderness.
Extremities: No pitting edema, good peripheral pulses, good range of motion
Skin: Warm and dry, no ulceration, normal color.
Neurological: Awake, alert and oriented x3, no facial droop, moves extremities for, speech clear and comprehensive, good muscle tone,
Psychiatric:
, normal thought and judgment, normal affect,
Physical Exam
General: Other
Laboratory Results
-
Sodium 141 potassium 3.9, chloride 105, carbon dioxide 26, BUN 14, creatinine 1.6, LFTs normal and alkaline phosphatase 73
Will get a chest x-ray
Data Reviewed
-
Lab Data: Labs Reviewed by me, Discussed with Patient and Discussed with Family
Old Records: Reviewed
Impression/Plan
-
IMPRESSION:
Unfortunate and pleasant 48-year-old female with recent diagnosis of the large cell lymphoma, presented to the hospital with intractable pain of the left upper back, likely cancer related pain while other causes may need to be considered, doubt
infection or pneumothorax.
Intractable pain likely secondary to cancer related pain
Recent diagnosis of the large cell lymphoma
PLAN:
Start IV Dilaudid 1 mg every 3 hours could be up or down titrated according to her response was discussed with the patient and her
Nausea medication as needed
Continue her home dose of allopurinol 300 mg daily
IV fluid
Hematology oncology consulted for further workup to them.
Patient with only once every other day with oxycodone she was given MiraLAX without much relief will add senna twice daily for now could be uptitrated accordingly
Monitor vital sign closely
I will get a chest x-ray to rule out any infection specially she had a laparoscopy on April 10 or pneumothorax .
All discussed with the patient and her
Discussed with the nurse
Consults full code
DVT prophylaxis Lovenox
[2024-04-17 23:52] VITALS: BP 125/83
[2024-04-18 00:08] VITALS: BP 134/81; BMI 20.8
[2024-04-18] MEDS: NSS 1000 IV ×3 (00:12→18:33)
[2024-04-18] MEDS: SENOKOT 8.6 MG PO ×3 (00:12→19:45)
[2024-04-18 00:28] VITALS: BMI 20.8
[2024-04-18] MEDS: COMPAZINE 5 MG IV (00:52)
[2024-04-18] MEDS: DILAUDID 0.5 MG IV ×4 (01:27→12:43)
--- NOTE | 2024-04-18 02:30 | PTCARENOTE ---
Received Pt from ED into room 2122 around 0000. Able to ambulate from hallway to bed with stand by assist. AAOx3. VSS. NS @ 100ml/hr. Complaining of 6/10 pain to L back and nausea. Notified EXECUTIVE MANAGER. Dilaudid 0.5mg IV ordered for moderate/breakthrough
pain. Compazine 5mg IV for nausea. See NOV. Assessment as documented. Pt oriented to room, resting in bed, no further complaints at this time.
[2024-04-18] MEDS: DILAUDID 1 MG IV ×3 (03:33→10:21)
--- NOTE | 2024-04-18 04:41 | W.PN.UPDATE ---
Update Note
Progress Note Update
Patient still complaining of uncontrolled pain with the current dose of 1 mg of hydromorphone q 3 hrs PRN for severe pain, will add hydromorphone 0.5mg [id number] added for moderate pain/breakthrough.
[2024-04-18 07:10] VITALS: BP 133/82
[2024-04-18 07:37] LABS: Blood Urea Nitrogen 9 mg/dl (7-17); Calcium 8.4 mg/dl (8.4-10.2); Carbon Dioxide 27 mmol/L (22-30); Chloride 107 mmol/L (98-107); Estimated Creatinine Clearance 103 ml/min; Glucose 91 mg/dl (70-99); Magnesium 1.7 mg/dl (1.6-2.3); Potassium 3.6 mmol/L (3.5-5.1); Sodium 139 mmol/L (135-145); eGFR > 60.00
[2024-04-18 08:24] LABS: % Basophils 0.5 % (0-2); % Eosinophils 9.2 % (0-6); % Immature Granulocytes 0.3 % (0-0.5); % Lymphocytes 16.2 % (20.5-51.1); % Monocytes 11.4 % (1.7-9.3); % Neutrophils 62.4 % (42.2-75.2); Absolute Eosinophils 0.6 10^3/uL (0-0.7); Absolute Monocytes 0.7 10^3/uL (0.1-0.6); Absolute Neutrophils 3.9 10^3/uL (1.4-6.5); Hematocrit 26.8 % (37.0-47.0); Hemoglobin 8.9 g/dL (12.0-16.0); Mean Corp Hgb Conc. 33.2 g/dL (33.0-37.0); Mean Corpuscular Hgb 28.9 pg (27.0-31.0); Mean Platelet Volume 12.4 fL (7.4-10.4); Nucleated Red Blood Cells % 0 %; Platelet Count 185 10^3/uL (130-400); Red Blood Cell Count 3.08 10^6/uL (4.20-5.40); Red Cell Dist. Width 15.9 % (11.5-14.5); White Blood Cell Count 6.2 10^3/uL (4.8-10.8)
[2024-04-18] MEDS: ZYLOPRIM 300 MG PO (08:29)
[2024-04-18] MEDS: ZOFRAN 4 MG IV ×2 (08:30→12:43)
--- NOTE | 2024-04-18 08:46 | CON.ONC ---
Impression
Impression
newly diagnosed DLBCL
intractable pain
normocytic anemia
Plan
Plan
follow for FISH
BMBx for staging, Dr. Maxwell obtained clearance for procedure from [facility]
continue allopurinol, IVF, keep I=O, monitor for TLS, monitor on telemetry
pain control
Dexamethasone 40mg PO x 4 days, PPI while on steroids
would use IV meds with n/v and transition to oral when tolerating PO
dvt ppx
Chemotherapy treatment plan. Cycle 1 Chop
cyclophosphamide 750mg/m2 1200mg IV x 1 dose
doxorubicin 50mg/m2 80mg IV x 1 dose
vincristine 1.4mg/m2 capped at 2mg IV x 1 dose
no prednisone in cycle 1 since on dexamethasone
Aloxi and Emend predications and prn ondansetron for nausea
pegfilgrastim 04/20
check Echo
PICC placement
check hepatitis B in preparation for Outpt Rituxan upon discharge
I will coordinate with Deann Mayo, Yumiko Schultz, and pharmacy
Patient History
History of Present Illness
48yo F with newly diagnosed DLBCL presented with the ER due to intractable pain.
Recall that she presented to 03/13 with chest pain for which CTA was negative for pulmonary emboli but incidentally noted an enlarged spleen and enlarged epigastric lymph nodes. A CT chest, abdomen, and pelvis showed splenomegaly, bulky
retroperitoneal lymphadenopathy, possible cystic lesion in the caudate lobe of the liver vs a necrotic lymph noted in RUQ. She was seen by Dr. Us and Dr. Scanlon in hospital follow up. She underwent a robotic retroperitoneal LN biopsy and
excision 04/10/[address] Scanlon. Her surgical pathology was diagnostic for DLBCL, FISH for MYC/BCL2/BCL6 are pending. She now presents to with progressing back and left flank pain that pain medications were not helping and causing nausea,
vomiting, and poor PO intake. She was advised to start allopurinol 300mg daily and dexamethasone 20mg daily x 5 days followed by 4mg BID. Labs show no evidence of spontaneous tumor lysis with LDH was 252, Uric acid 3.5, normal renal function and
electrolytes.
Clinically, she denies any B symptoms or self palpable adenopathy. She is receiving Dilaudid for pain control and ondansetron for nausea/vomiting.
Past-Medical/Surgical History
PMH post cardiomyopathy 2008, NSTEMI, spontaneous coronary artery dissection 2018
PSH: robotic retroperitoneal LN biopsy and excision
Family: denies malignancy
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
Patient Medication
�Medication �Instructions �Recorded �Confirmed �Last Taken �Type
hydromorphone 4 mg tablet 4 mg PO Q6H PRN Pain #20 tabs 04/15/24 04/17/24 Unknown Rx
ondansetron 4 mg disintegrating 4 mg PO TIDPRN PRN nausea/vomiting 04/15/24 04/17/24 Unknown Rx
tablet #20 tabs
allopurinol 300 mg tablet 300 mg PO ONCE Gout 04/17/24 04/17/24 04/17/24 18:00 History
oxycodone 10 mg tablet 5 mg PO Q4HPRN PRN moderate pain 04/17/24 04/17/24 04/17/24 13:00 History
Active Medications
Generic Name Dose Route Start Last Admin
Trade Name Freq PRN Reason Stop Dose Admin
Acetaminophen 650 mg 04/18/24 00:02
Acetaminophen 325 Mg Tablet PO 05/16/24 00:01
Q4HPRN PRN
mild pain/CASTRO/temp> 100.4F
Allopurinol 300 mg 04/18/24 08:00 04/18/24 08:29
Allopurinol 300 Mg Tablet PO 05/16/24 07:59 300 mg
DAILY MIGUEL Administration
Bisacodyl 10 mg 04/18/24 00:02
Bisacodyl 10 Mg Rectal Suppository RECTAL 05/16/24 00:01
[id number] PRN
constipation
Enoxaparin Sodium 40 mg 04/18/24 18:00
Enoxaparin Sodium 40 Mg/0.4 Ml Syringe SC 05/16/24 17:59
QPM MIGUEL
Hydromorphone HCl 1 mg 04/17/24 23:46 04/18/24 06:33
Hydromorphone 1 Mg/Ml Carpuject IV 05/01/24 23:45 1 mg
Q3HPRN PRN Administration
severe pain
Hydromorphone HCl 0.5 mg 04/18/24 01:20 04/18/24 08:29
Hydromorphone 0.5 Mg/0.5 Ml Syringe IV 05/02/24 01:19 0.5 mg
Q3HPRN PRN Administration
moderate pain/ break through
Sodium Chloride 1,000 mls @ 100 mls/hr 04/18/24 00:02 04/18/24 00:12
Nss IV 04/19/24 00:01 1,000 mls
.Q10H MIGUEL Administration
Ondansetron HCl 4 mg 04/18/24 00:02 04/18/24 08:30
Ondansetron 4 Mg/2 Ml Vial IV 05/16/24 00:01 4 mg
Q6HPRN PRN Administration
nausea and vomiting
Polyethylene Glycol 17 grams 04/18/24 00:02
Polyethylene Glycol Powder 17 Grams Packet PO 05/16/24 00:01
DAILYPRN PRN
constipation
Senna/Docusate Sodium 1 tablet 04/18/24 00:02
Docusate W/Senna (Ashlyn-Colace) Tablet PO 05/16/24 00:01
BIDPRN PRN
constipation
Sennosides 8.6 mg 04/18/24 00:02 04/18/24 08:29
Sennosides (Senokot) 8.6 Mg Tablet PO 05/16/24 00:01 8.6 mg
BID MIGUEL Administration
Sodium Chloride 0 flush 04/17/24 23:00
Sodium Chloride 0.9% (Flush) Syringe IV 05/15/24 22:59
PER PROTOCOL MIGUEL
Review of Systems
-
Review of systems is notable for HPI, otherwise negative
Physical Exam
-
General: Appears in Distress (due to N/V)
HEENT: Moist Mucous Membranes; Negative Jaundice
Cardiology: Normal Sinus Rhythm
Pulmonary: Clear
GI: Soft
Extremities: Pulses Present; Negative Phlebitic Signs or Edema
Neurology: Non Focal and Other (speech clear)
Skin: Warm
Labs
Lab Results
WBC 6.2 10^3/uL (4.8-10.8) 04/18/24 05:55
RBC 3.08 10^6/uL (4.20-5.40) L 04/18/24 05:55
Hgb 8.9 g/dL (12.0-16.0) L 04/18/24 05:55
Hct 26.8 % (37.0-47.0) L 04/18/24 05:55
MCV 87.0 fL (81.0-99.0) 04/18/24 05:55
MCH 28.9 pg (27.0-31.0) 04/18/24 05:55
MCHC 33.2 g/dL (33.0-37.0) 04/18/24 05:55
RDW 15.9 % (11.5-14.5) H 04/18/24 05:55
Plt Count 185 10^3/uL (130-400) 04/18/24 05:55
MPV 12.4 fL (7.4-10.4) H 04/18/24 05:55
Abs Immat Gran (auto) 0.0 10^3/uL (0-0.05) 04/18/24 05:55
Absolute Neuts (auto) 3.9 10^3/uL (1.4-6.5) 04/18/24 05:55
Absolute Lymphs (auto) 1.0 10^3/uL (1.2-3.4) L 04/18/24 05:55
Absolute Monos (auto) 0.7 10^3/uL (0.1-0.6) H 04/18/24 05:55
Absolute Eos (auto) 0.6 10^3/uL (0-0.7) 04/18/24 05:55
Absolute Basos (auto) 0.0 10^3/uL (0-0.2) 04/18/24 05:55
Immature Gran % 0.3 % (0-0.5) 04/18/24 05:55
Neutrophils % 62.4 % (42.2-75.2) 04/18/24 05:55
Lymphocytes % 16.2 % (20.5-51.1) L 04/18/24 05:55
Monocytes % 11.4 % (1.7-9.3) H 04/18/24 05:55
Eosinophils % 9.2 % (0-6) H 04/18/24 05:55
Basophils % 0.5 % (0-2) 04/18/24 05:55
Creatinine 0.5 mg/dL (0.6-1.0) L 04/18/24 05:55
Vital Signs
Vital Signs
Temp Pulse Resp BP Pulse Ox
97.8 F 98 16 133/82 96
04/18/24 07:10 04/18/24 07:10 04/18/24 07:10 04/18/24 07:10 04/18/24 07:10
[2024-04-18] MEDS: DECADRON 40 MG PO (09:56)
[2024-04-18] MEDS: PROTONIX 40 MG PO (09:56)
--- NOTE | 2024-04-18 10:45 | CM ---
CM following re: discharge planning.
Reviewed pt's chart, met with pt.
Pt is a 48 year old female, admitted with primary dx of Intractable pain, recent diagnosis of the large cell lymphoma.
pt reports she lives with and 2 children 12 and 15 year of age in a 2SH. Pt described herself as independent in all areas [employer], drives, works.
Pharmacy: [facility] in [facility]
D/C plan: home with anticipated no after care VN needs. to transport at discharge.
CM will follow with discharge plan updates as hospitalization progresses
--- NOTE | 2024-04-18 11:13 | PTCARENOTE ---
called David (pts ) and gave him an update on care. Patient is being transferred to for chemo.
--- NOTE | 2024-04-18 11:38 | W.PN.HOSP.TC ---
Today's Communication/Plan
-
Tele
Fentanyl
CW Decadron
Assessment / Plan
Assessment / Plan
IMPRESSION:
Unfortunate and pleasant 48-year-old female with recent diagnosis of the large cell lymphoma, presented to the hospital with intractable pain of the left upper back, likely cancer related pain while other causes may need to be considered, doubt
infection or pneumothorax.
Intractable pain likely secondary to cancer related pain
Recent diagnosis of the large cell lymphoma
PLAN:
cw IV Dilaudid 1 mg every 3 hours - due to current need of pain meds would Benefit to regular release narcotic regimen. Start on fentanyl low dose patch.
Nausea medication as needed
Continue her home dose of allopurinol 300 mg daily
cw IV fluid due to poor oral intake and nausea
Initaitaed on Decardron
Onc planning on Chemo tomorrow. For prechemo ECHO today
Follow on tele
Tx to 3 floor for chemo
DW Onc regarding the plan
Anticipated Discharge: > 48 hours
Subjective/Interval History
-
Date of Service: April 18, 2024
Patient with still persistent left upper back pain. Severe in nature - Requiring lot of IV narcotics.
Going down for ECHO this am
Objective Data
-
Labs:
Laboratory Results
04/18/24
05:55
WBC 6.2
Hgb 8.9 L
Hct 26.8 L
Plt Count 185
Sodium 139
Potassium 3.6
Chloride 107
Carbon Dioxide 27
BUN 9
Creatinine 0.5 L
Glucose 91
Calcium 8.4
Vital Signs:
Vital Signs
Temp Pulse Resp BP Pulse Ox
97.8 F 98 16 133/82 96
04/18/24 07:10 04/18/24 07:10 04/18/24 07:10 04/18/24 07:10 04/18/24 07:10
Review of Systems
-
Constitutional: Denies Fever
Respiratory: Denies Trouble Breathing
Abdomen/GI: Reports Nausea
Neuro: Denies Dizzy
Physical Exam
-
Respiratory: Non Labored Respirations; Negative Accessory Resp Muscle Use
Cardiac: Regular Rhythm and S1/S2
GI: Soft
Neuro: AO x 3
Data Reviewed
-
Labs: Labs Reviewed by me
--- NOTE | 2024-04-18 11:46 | PTCARENOTE ---
Called and gave report to Colleen on 3W patient will be transported to the floor after echo.
[2024-04-18 12:19] VITALS: BP 146/86
--- NOTE | 2024-04-18 12:34 | PTCARENOTE ---
patient transferred to room 328 via stretcher from [facility]. patient continues with persistent left upper back pain, kpad in place, rates 6/10. nausea, poor oral intake and constipation. vss, spoke with Dr. Ashraf and will start Fentanyl patch,
Roxicodone, continue Dilaudid as ordered and one time dose of Zofran ordered. patient made aware, will continue to monitor. (see full shift assessment)
[2024-04-18] MEDS: DURAGESIC 12 MCG/HR PATCH 1 PATCH TRANSDERM (14:22)
--- NOTE | 2024-04-18 14:53 | PTCARENOTE ---
per patient, nausea improved, pain improved to 2/10, family at bedside, will continue to monitor.
[2024-04-18 15:41] VITALS: BP 125/78
[2024-04-18] MEDS: LOVENOX 40 MG SC (17:30)
--- NOTE | 2024-04-18 17:34 | PTCARENOTE ---
patient passing flatus, tolerating some pizza, soup, water ice, will continue to monitor.
[2024-04-18 19:58] VITALS: BP 121/75
[2024-04-19] VITALS (14 sets, daily range): BP systolic 89–118; BP diastolic 65–77; BMI 21.1
[2024-04-19 06:31] LABS: LDH 414 U/L (120-246); Phosphorus 3.8 mg/dl (2.5-4.5); Uric Acid 2.4 mg/dl (2.5-6.2)
[2024-04-19 06:35] LABS: INR 1.09; PT 14.1 Sec (11.4-14.6)
[2024-04-19 07:59] LABS: Hepatitis B Core Ab, Total Negative (Negative); Hepatitis B Surface Antibody Negative
[2024-04-19] MEDS: ZYLOPRIM 300 MG PO (08:24)
[2024-04-19] MEDS: SENOKOT 8.6 MG PO ×2 (08:24→20:30)
[2024-04-19] MEDS: PROTONIX IV 40 MG IV (08:25)
[2024-04-19] MEDS: NSS (PRESERVATIVE FREE) 10 ML IV (08:26)
[2024-04-19 08:46] LABS: % Basophils 0.2 % (0-2); % Immature Granulocytes 0.4 % (0-0.5); % Lymphocytes 10.3 % (20.5-51.1); % Monocytes 6.4 % (1.7-9.3); % Neutrophils 82.7 % (42.2-75.2); Absolute Lymphocytes 0.6 10^3/uL (1.2-3.4); Absolute Monocytes 0.4 10^3/uL (0.1-0.6); Absolute Neutrophils 4.5 10^3/uL (1.4-6.5); Hematocrit 29.6 % (37.0-47.0); Hemoglobin 9.9 g/dL (12.0-16.0); Mean Corp Hgb Conc. 33.4 g/dL (33.0-37.0); Mean Corpuscular Hgb 28.6 pg (27.0-31.0); Mean Corpuscular Volume 85.5 fL (81.0-99.0); Mean Platelet Volume 11.9 fL (7.4-10.4); Nucleated Red Blood Cells % 0 %; Platelet Count 241 10^3/uL (130-400); Red Blood Cell Count 3.46 10^6/uL (4.20-5.40); Red Cell Dist. Width 14.6 % (11.5-14.5); White Blood Cell Count 5.4 10^3/uL (4.8-10.8)
[2024-04-19] MEDS: DECADRON 60 MG IV (08:46)
--- NOTE | 2024-04-19 09:28 | W.PN.ONC2 ---
Today's Communication / Plan
-
CHOP today
monitor TLS q8h
BMBx
symptom support
Impression
Impression
newly diagnosed DLBCL
intractable pain -controlled
intractable nausea -controlled
normocytic anemia
Plan
Plan
follow for FISH
BMBx for staging, Dr. Maxwell obtained clearance for procedure from [facility]
continue allopurinol, IVF, keep I=O, monitor for TLS, monitor on telemetry
pain control
Dexamethasone 40mg x 4 days, PPI while on steroids
would use IV meds with n/v and transition to oral when tolerating PO
dvt ppx
Chemotherapy treatment plan. Cycle 1 Chop
cyclophosphamide 750mg/m2 1200mg IV x 1 dose
doxorubicin 50mg/m2 80mg IV x 1 dose
vincristine 1.4mg/m2 capped at 2mg IV x 1 dose
no prednisone in cycle 1 since on dexamethasone
Aloxi and Emend predications and prn ondansetron for 1st line antiemetic, compazine 2nd line antiemetic
pegfilgrastim 04/20
Baseline echo complete
PICC in place
f/u hepatitis B in preparation for Outpt Rituxan upon discharge
Subjective/Objective
Chief Complaint
pain controlled
nausea controlled
Subjective
no new complaints
denies bleeding
Vital Signs:
Vital Signs
Temp Pulse Resp BP Pulse Ox
97.7 F 79 18 111/67 97
04/19/24 07:34 04/19/24 07:34 04/19/24 07:34 04/19/24 07:34 04/19/24 07:34
Lab Results:
Laboratory Data
WBC 5.4 10^3/uL (4.8-10.8) 04/19/24 04:00
Hgb 9.9 g/dL (12.0-16.0) L 04/19/24 04:00
Plt Count 241 10^3/uL (130-400) D 04/19/24 04:00
PT 14.1 Sec (11.4-14.6) 04/19/24 04:00
INR 1.09 04/19/24 04:00
eGFR > 60.00 04/18/24 05:55
Physical Exam
HEENT: Moist Mucous Membranes; No Jaundice
Cardiology: Normal Sinus Rhythm
Pulmonary: Clear
GI: Soft
Extremities: Pulses Present; No Edema
Neuro: Non Focal
Review of Systems
Review of Systems
Review of systems notable for subjective otherwise negative
Orders
Orders
Orders From Last 24 Hours
04/18/24 09:14
Consult Interventional Radiology [IRAD CONSULT] Routine
04/18/24 09:34
PICC Line As Directed
04/18/24 09:40
Echo 2D M-mode Dop w Strain Routine
04/18/24 10:00
Dexamethasone [Decadron] 40 mg PO DAILY
Pantoprazole [Protonix] 40 mg PO DAILY
04/18/24 11:39
Prochlorperazine [Compazine] 10 mg IV Q6HPRN PRN
04/18/24 11:51
Ondansetron Injectable [Zofran] 4 mg IV NOW STA
04/18/24 13:00
Ondansetron Injectable [Zofran] 8 mg Dextrose 5%/Water 50 ml [D5w] 50 ml IV Q8HPRN
04/18/24 15:23
Portable Chest Xray [CR Chest Portable - 1 View] Urgent
04/19/24 04:00
Hepatitis B Core Ab, Total IN AM
Hepatitis B Surface Antibody IN AM
Hepatitis B Surface Antigen IN AM
LDH IN AM
Phos [Phosphorus] IN AM
Uric Acid IN AM
04/19/24 08:00
0.9% Sodium Chloride [Nss (Preservative Free)] 10 ml IV DAILY
Dexamethasone Sod Phosphate [Decadron] 40 mg 0.9% Sodium Chloride 50 ml [Nss] 50 ml IV Q24H
Pantoprazole [Protonix IV] 40 mg IV DAILY
04/19/24 11:00
Fosaprepitant Dimeglumine [Emend] 150 mg 0.9% Sodium Chloride 150 ml [Nss] 145 ml IV ONCE
Palonosetron HCl [Aloxi] 0.25 mg Syringe [Syringe Non-Pump] 0 ml IV ONCE
04/20/24 06:00
LDH IN AM
Phos [Phosphorus] IN AM
Uric Acid IN AM
04/21/24 06:00
LDH IN AM
Phos [Phosphorus] IN AM
Uric Acid IN AM
[2024-04-19] MEDS: EMEND 150 MG IV (11:00)
[2024-04-19] MEDS: ALOXI 5 MG IV (11:03)
[2024-04-19] MEDS: ADRIAMYCIN 40 MG IV (11:38)
[2024-04-19 11:42] LABS: Hepatitis B Surface Antigen Negative (Negative)
[2024-04-19] MEDS: ONCOVIN 52 MG IV (12:04)
[2024-04-19] MEDS: CYCLOPHOSPHAMIDE 256 MG IV ×2 (12:22)
--- NOTE | 2024-04-19 12:58 | W.PN.HOSP.TC ---
Today's Communication/Plan
-
cw current pain regimen
Chemo per Onc
Assessment / Plan
Assessment / Plan
IMPRESSION:
Unfortunate and pleasant 48-year-old female with recent diagnosis of the large cell lymphoma, presented to the hospital with intractable pain of the left upper back, likely cancer related pain while other causes may need to be considered, doubt
infection or pneumothorax.
Intractable pain likely secondary to cancer related pain
Recent diagnosis of the large cell lymphoma
PLAN:
Improved pain symptom since starting chemo and going on fentanyl low dose patch. cw current pain meds.
CW Nausea medication as needed
Continue her home dose of allopurinol 300 mg daily
Initaitaed on Decardron
CW chemo tx per Onc
Follow on tele
DC when ok from onc standpoint
Anticipated Discharge: 24 - 48 hours
Subjective/Interval History
-
Date of Service: April 19, 2024
Pain symptom much improved.
Not needing much breakthrough pain meds.
Objective Data
-
Labs:
Laboratory Results
04/19/24 04/19/24
04:00 20:00
WBC 5.4
Hgb 9.9 L
Hct 29.6 L
Plt Count 241 D
PT 14.1
INR 1.09
Sodium Pending
Potassium Pending
Chloride Pending
Carbon Dioxide Pending
BUN Pending
Creatinine Pending
Glucose Pending
Calcium Pending
Vital Signs:
Vital Signs
Temp Pulse Resp BP Pulse Ox
97.7 F 82 18 108/68 97
04/19/24 12:11 04/19/24 12:11 04/19/24 12:11 04/19/24 12:11 04/19/24 12:11
I&O
04/18/24 04/19/24 04/20/24
06:59 06:59 06:59
Intake Total 480 / 480
Balance 480 / 480
Review of Systems
-
Constitutional: Denies Fever
Respiratory: Denies Trouble Breathing
Cardiac: Denies Chest Pain
Abdomen/GI: Denies Nausea or Vomiting
Neuro: Denies Dizzy
Physical Exam
-
General: No Apparent Distress
HEENT: Moist Mucous Membranes
Respiratory: Non Labored Respirations; Negative Accessory Resp Muscle Use
GI: Soft
Neuro: AO x 3
Data Reviewed
-
Labs: Labs Reviewed by me
--- NOTE | 2024-04-19 15:58 | CM ---
Case management following for d/c planning
Chart reviewed
starting chemo
fentanyl patch for pain mgt
Nausea medication as needed
CM will follow for d/c needs
Plan - needs tbd
--- NOTE | 2024-04-19 16:09 | PTCARENOTE ---
Pt returned from bone marrow biopsy AAOX3. VSS. Pt with band aid to right iliac crest clean dry and intact. Right double lumen picc intact with positive blood return. All needs met. Pt denies pain at this time. Personal items and call light
within reach.
[2024-04-19] MEDS: LOVENOX 40 MG SC (18:02)
[2024-04-19 20:20] LABS: Blood Urea Nitrogen 17 mg/dl (7-17); Calcium 8.7 mg/dl (8.4-10.2); Carbon Dioxide 25 mmol/L (22-30); Chloride 106 mmol/L (98-107); Estimated Creatinine Clearance 103 ml/min; Glucose 140 mg/dl (70-99); LDH 340 U/L (120-246); Potassium 3.7 mmol/L (3.5-5.1); Sodium 137 mmol/L (135-145); Uric Acid 1.9 mg/dl (2.5-6.2); eGFR > 60.00
[2024-04-19] MEDS: MIRALAX 17 GRAMS PO (20:30)
[2024-04-20 02:30] VITALS: BP 127/73
--- NOTE | 2024-04-20 02:30 | PTCARENOTE ---
Monitor alarmed with 3 and 5 beat runs of PVC's and HR of 107. Checked in on pt who stated she was turning. Asymptomatic, VSS at rest. Previous runs of PVC's noted earlier in the day. JESSE Renner made aware. Mag ordered with labs, will
continue to monitor pt and follow plan of care.
[2024-04-20 07:00] VITALS: BP 114/65
[2024-04-20 08:23] VITALS: BMI 21.4
[2024-04-20] MEDS: SENOKOT 8.6 MG PO ×2 (08:23→21:39)
[2024-04-20] MEDS: CLARITIN 10 MG PO (08:23)
[2024-04-20] MEDS: ZYLOPRIM 300 MG PO (08:23)
[2024-04-20] MEDS: NSS (PRESERVATIVE FREE) 10 ML IV (08:24)
[2024-04-20] MEDS: DECADRON 60 MG IV (08:24)
[2024-04-20] MEDS: PROTONIX IV 40 MG IV (08:24)
[2024-04-20 09:30] LABS: Blood Urea Nitrogen 21 mg/dl (7-17); Calcium 8.6 mg/dl (8.4-10.2); Carbon Dioxide 25 mmol/L (22-30); Chloride 105 mmol/L (98-107); Estimated Creatinine Clearance 88 ml/min; Glucose 105 mg/dl (70-99); LDH 296 U/L (120-246); Phosphorus 4.5 mg/dl (2.5-4.5); Potassium 3.8 mmol/L (3.5-5.1); Sodium 137 mmol/L (135-145); Uric Acid 2.4 mg/dl (2.5-6.2); eGFR > 60.00
[2024-04-20 09:32] LABS: % Basophils 0.1 % (0-2); % Immature Granulocytes 0.9 % (0-0.5); % Lymphocytes 4.3 % (20.5-51.1); % Monocytes 4.3 % (1.7-9.3); % Neutrophils 90.4 % (42.2-75.2); Absolute Immature Granulocytes 0.1 10^3/uL (0-0.05); Absolute Lymphocytes 0.5 10^3/uL (1.2-3.4); Absolute Monocytes 0.5 10^3/uL (0.1-0.6); Absolute Neutrophils 10.5 10^3/uL (1.4-6.5); Hematocrit 28.3 % (37.0-47.0); Hemoglobin 9.7 g/dL (12.0-16.0); Mean Corp Hgb Conc. 34.3 g/dL (33.0-37.0); Mean Corpuscular Volume 81.6 fL (81.0-99.0); Mean Platelet Volume 11.3 fL (7.4-10.4); Nucleated Red Blood Cells % 0 %; Platelet Count 241 10^3/uL (130-400); Red Blood Cell Count 3.47 10^6/uL (4.20-5.40); Red Cell Dist. Width 13.3 % (11.5-14.5); White Blood Cell Count 11.6 10^3/uL (4.8-10.8)
[2024-04-20 09:34] LABS: Blood Urea Nitrogen 22 mg/dl (7-17); Calcium 8.5 mg/dl (8.4-10.2); Carbon Dioxide 26 mmol/L (22-30); Chloride 105 mmol/L (98-107); Estimated Creatinine Clearance 88 ml/min; Glucose 105 mg/dl (70-99); Potassium 3.8 mmol/L (3.5-5.1); Sodium 137 mmol/L (135-145); Uric Acid 2.4 mg/dl (2.5-6.2); eGFR > 60.00
--- NOTE | 2024-04-20 09:38 | W.PN.HOSP.TC ---
Addendum entered and electronically signed by Alon Wu MD 04/20/24 10:03:
I spoke to on-call beater lead today and given patient's normal ejection fraction and asymptomatic PVCs, then would not do anything other than make sure electrolytes and magnesium are okay. No need for cardiology consultation at this time.
Original Note:
Today's Communication/Plan
-
Chemo yesterday
Oncology following
If labs look okay, possible discharge tomorrow as per oncology
Cardiology consulted for PVCs which could be an effect of the chemo
Assessment / Plan
Assessment / Plan
Physical Exam
General: Not in acute distress
HEENT: Normocephalic
Respiratory: CTAB; Non Labored Respirations
GI: Soft. Nontender. Positive bowel sounds.
Neuro: AAO x 3
Assessment/Plan
IMPRESSION:
Unfortunate and pleasant 48-year-old female with recent diagnosis of the large cell lymphoma, presented to the hospital with intractable pain of the left upper back, likely cancer related pain while other causes may need to be considered, doubt
infection or pneumothorax.
Intractable pain likely secondary to cancer related pain
Recent diagnosis of the large cell lymphoma
3 and 5 beat runs of PVC's plus tachycardia with activity/turning in bed -- PVCs possibly a side effects from chemo
PLAN:
Will consult cardiology for PVCs on tele monitor on 04/19/24
Improved pain symptom since starting chemo and going on fentanyl low dose patch. cw current pain meds.
CW Nausea medication as needed
Continue her home dose of allopurinol 300 mg daily
Continue Decadron
CW chemo tx and monitoring of labwork as per Onc
Follow on tele
DC when ok from onc standpoint
Anticipated Discharge: 24 - 48 hours
Subjective/Interval History
-
Date of Service: April 20, 2024
Patient was seen and examined. She denied any new symptoms or complaints.
Objective Data
-
Labs:
Laboratory Results
04/20/24 04/20/24 04/20/24
08:22 08:22 08:22
WBC 11.6 H
Hgb 9.7 L
Hct 28.3 L
Plt Count 241
Sodium 137 137
Potassium 3.8 3.8
Chloride 105
Carbon Dioxide
BUN
Creatinine
Glucose
Calcium
04/20/24 04/20/24 04/20/24
08:22 08:22 08:22
WBC
Hgb
Hct
Plt Count
Sodium
Potassium
Chloride 105
Carbon Dioxide 26 25
BUN 22 H 21 H
Creatinine 0.7
Glucose
Calcium
04/20/24 04/20/24 04/20/24
08:22 08:22 08:22
WBC
Hgb
Hct
Plt Count
Sodium
Potassium
Chloride
Carbon Dioxide
BUN
Creatinine 0.7
Glucose 105 H 105 H
Calcium 8.5 8.6
04/20/24 04/20/24
12:00 20:00
WBC
Hgb
Hct
Plt Count
Sodium Pending Pending
Potassium Pending Pending
Chloride Pending Pending
Carbon Dioxide Pending Pending
BUN Pending Pending
Creatinine Pending Pending
Glucose Pending Pending
Calcium Pending Pending
Vital Signs:
Vital Signs
Temp Pulse Resp BP Pulse Ox
97.9 F 76 16 114/65 93
04/20/24 07:00 04/20/24 07:00 04/20/24 07:00 04/20/24 07:00 04/20/24 07:00
I&O
04/19/24 04/20/24 04/21/24
06:59 06:59 06:59
Intake Total 480 / 480 976 / 976
Output Total 250 / 250
Balance 480 / 480 726 / 726
[2024-04-20 11:00] VITALS: BP 117/74
[2024-04-20 12:36] LABS: Blood Urea Nitrogen 21 mg/dl (7-17); Calcium 8.8 mg/dl (8.4-10.2); Carbon Dioxide 27 mmol/L (22-30); Chloride 105 mmol/L (98-107); Estimated Creatinine Clearance 103 ml/min; Glucose 137 mg/dl (70-99); LDH 283 U/L (120-246); Phosphorus 3.8 mg/dl (2.5-4.5); Potassium 3.9 mmol/L (3.5-5.1); Sodium 137 mmol/L (135-145); Uric Acid 2.1 mg/dl (2.5-6.2); eGFR > 60.00
--- NOTE | 2024-04-20 12:53 | W.PN.ONC2 ---
Today's Communication / Plan
-
- long acting G-CSF to be given today.
- continue to monitor CBC, CMP TLS labs daily.
- last day of high dose dex 04/21.
- if pain controlled and labs stable ok for discharge 04/21 with oncology follow up 04/26.
Impression
Impression
newly diagnosed DLBCL
intractable pain -controlled
intractable nausea -controlled
normocytic anemia
Plan
Plan
C1 CHOP given in-pt 04/19 due to rapid progression of symptoms. tolerating well.
will receive Fulphilia long acting G-CSF today.
run of PVCs overnight possibly tx related. pre-tx echo normal. continue to monitor on tele. electrolytes stable today.
continue allopurinol, IVF, keep I=O, monitor for TLS daily.
pain control: controlled now with fentanyl patch alone. I suspect with initiation of tx, steroids pain will continue to improve.
Dexamethasone 40mg x 4 days (04/18-04/21), PPI while on steroids
zofran, compazine prn nausea.
dvt ppx
Subjective/Objective
Chief Complaint
DLBCL
Subjective
pt received CHOP yesterday without issues during infusion. She was noted to have run of PVCs on tele last night which she states must have office when she rolled over and had some pain but denies chest tightness or palpitations at that time. Denies
nausea today but notes decreased appetite. She has not prn dilaudid or oxycodone since 04/18 with initiation of steroids, fentanyl patch.
Vital Signs:
Vital Signs
Temp Pulse Resp BP Pulse Ox
97.6 F 91 17 117/74 94
04/20/24 11:00 04/20/24 11:00 04/20/24 11:00 04/20/24 11:00 04/20/24 11:00
Lab Results:
Laboratory Data
WBC 11.6 10^3/uL (4.8-10.8) H 04/20/24 08:22
Hgb 9.7 g/dL (12.0-16.0) L 04/20/24 08:22
Plt Count 241 10^3/uL (130-400) 04/20/24 08:22
PT 14.1 Sec (11.4-14.6) 04/19/24 04:00
INR 1.09 04/19/24 04:00
eGFR > 60.00 04/20/24 12:09
Physical Exam
HEENT: No Jaundice
Cardiology: Normal Sinus Rhythm
Pulmonary: Clear
GI: Soft; No Distended
Extremities: No Edema
Neuro: Non Focal
Review of Systems
Review of Systems
Constitutional: Denies Fever or Fatigue
Respiratory: Denies Cough
Cardiovascular: Denies Chest Pain or Palpitations
Gastrointestinal: Denies Nausea/Vomiting or Diarrhea
Neurological: Denies Headache
[2024-04-20] MEDS: FULPHILA 6 MG SC (14:59)
[2024-04-20 15:00] VITALS: BP 115/70
[2024-04-20] MEDS: LOVENOX 40 MG SC (17:54)
[2024-04-20 19:25] VITALS: BP 116/70
[2024-04-20 20:43] LABS: Blood Urea Nitrogen 23 mg/dl (7-17); Calcium 8.9 mg/dl (8.4-10.2); Carbon Dioxide 26 mmol/L (22-30); Chloride 104 mmol/L (98-107); Estimated Creatinine Clearance 88 ml/min; Glucose 129 mg/dl (70-99); LDH 274 U/L (120-246); Phosphorus 4.2 mg/dl (2.5-4.5); Sodium 135 mmol/L (135-145); eGFR > 60.00
[2024-04-20 23:30] VITALS: BP 120/78
[2024-04-21 03:30] VITALS: BP 121/74
[2024-04-21] MEDS: DILAUDID 1 MG IV (04:59)
[2024-04-21] MEDS: ZOFRAN 54 MG IV (05:05)
[2024-04-21 07:00] VITALS: BP 128/71
[2024-04-21 07:54] VITALS: BMI 21.4
[2024-04-21] MEDS: PROTONIX IV 40 MG IV (07:56)
[2024-04-21] MEDS: CLARITIN 10 MG PO (07:56)
[2024-04-21] MEDS: NSS (PRESERVATIVE FREE) 10 ML IV (07:56)
[2024-04-21] MEDS: DECADRON 60 MG IV (07:56)
[2024-04-21] MEDS: ZYLOPRIM 300 MG PO (07:56)
[2024-04-21 08:29] LABS: Uric Acid 2.3 mg/dl (2.5-6.2)
[2024-04-21] MEDS: SENOKOT 8.6 MG PO (08:29)
[2024-04-21 08:33] LABS: Blood Urea Nitrogen 27 mg/dl (7-17); Calcium 8.9 mg/dl (8.4-10.2); Carbon Dioxide 27 mmol/L (22-30); Chloride 105 mmol/L (98-107); Estimated Creatinine Clearance 88 ml/min; Glucose 91 mg/dl (70-99); LDH 289 U/L (120-246); Phosphorus 4.5 mg/dl (2.5-4.5); Potassium 3.7 mmol/L (3.5-5.1); Sodium 138 mmol/L (135-145); Uric Acid 2.3 mg/dl (2.5-6.2); eGFR > 60.00
[2024-04-21 09:26] LABS: % Basophils 0.1 % (0-2); % Immature Granulocytes 8.8 % (0-0.5); % Lymphocytes 1.4 % (20.5-51.1); % Monocytes 2.7 % (1.7-9.3); Absolute Immature Granulocytes 2.8 10^3/uL (0-0.05); Absolute Lymphocytes 0.4 10^3/uL (1.2-3.4); Absolute Monocytes 0.9 10^3/uL (0.1-0.6); Absolute Neutrophils 27.5 10^3/uL (1.4-6.5); Hematocrit 28.2 % (37.0-47.0); Hemoglobin 9.7 g/dL (12.0-16.0); Mean Corp Hgb Conc. 34.4 g/dL (33.0-37.0); Mean Corpuscular Hgb 28.5 pg (27.0-31.0); Mean Corpuscular Volume 82.9 fL (81.0-99.0); Mean Platelet Volume 11.2 fL (7.4-10.4); Nucleated Red Blood Cells % 0 %; Platelet Count 237 10^3/uL (130-400); Red Cell Dist. Width 13.5 % (11.5-14.5); White Blood Cell Count 31.6 10^3/uL (4.8-10.8)
[2024-04-21 11:00] VITALS: BP 126/71
--- NOTE | 2024-04-21 11:15 | W.PN.HOSP.TC ---
Today's Communication/Plan
-
Okay to discharge today as per oncologist
Assessment / Plan
Assessment / Plan
Physical Exam
General: Not in acute distress
HEENT: Normocephalic
Respiratory: CTAB; Non Labored Respirations
GI: Soft. Nontender. Positive bowel sounds.
Neuro: AAO x 3
Psych: Calm

Chest X-Ray Results (as per radiologist's report):
IMPRESSION:
1. Small left pleural effusion, new compared to prior chest x-ray.
2. Left lower lobe airspace disease may also be present.
Echocardiogram Results (as per junior graphic designer's report):
'CONCLUSIONS
Normal left ventricular size, wall thickness and systolic function. No regional
wall motion abnormalities are seen. LV ejection fraction is 70-75% by Baxter's
method of discs. Normal diastolic function.
Baseline GLS is -22.8%.
Normal right ventricular size. Normal right ventricular systolic function.
Mild mitral regurgitation.
Mild tricuspid regurgitation. Estimated pulmonary artery pressure of 25-30
mmHg. Assuming a right atrial pressure of 3 mmHg.
Compared to the previous echo 07/17/19, there is no significant change.'

Assessment/Plan
IMPRESSION:
48-year-old female with recent diagnosis of the large cell lymphoma, presented to the hospital with intractable pain of the left upper back, likely cancer related pain.
Intractable pain likely secondary to cancer related pain
Recent diagnosis of the large cell lymphoma
3 and 5 beat runs of PVC's plus tachycardia with activity/turning in bed -- PVCs possibly a side effects from chemo
Small Left Pleural Effusion with possible left lower lobe airspace disease on Chest X-ray
PLAN:
I spoke with on-call junior graphic designer given patient's PVCs on telemetry and history of Spontaneous Coronary Artery Dissection, Myocardial Infarction and Peripartum Cardiomyopathy --> but even with her history, since the PVCs are asymptomatic, there is
nothing to do from cardiology perspective
Patient had a recurrence of pain overnight 04/20/24 to 04/21/24: patient says she has as needed oxycodone at home, and is happy to just get some Fentanyl Patches on discharge (which can be refilled by her oncology office after the ones prescribed on
discharge run out)
Continue with nausea medication as needed
Continue her home dose of allopurinol 300 mg daily
Last dose of high dose Dexmethasone was on April 21, 2024
Follow-up with oncology outpatient
Follow-up with pulmonary outpatient
Okay to discharge today, as per oncologist Dr. Rizzo.
More than 30 minutes spent in discharge including
Final examination of the patient
Summarizing hospital stay
Instructions for continuing care to all relevant caregivers
Preparation of discharge records, prescriptions, and referral forms
Total time spent (in minutes): 39
Anticipated Discharge: Today
Subjective/Interval History
-
Date of Service: April 21, 2024
Patient was seen and examined. Per patient's nurse, she had pain overnight, needing a dose of Dilaudid.
Objective Data
-
Labs:
Laboratory Results
04/21/24 04/21/24 04/21/24
07:36 12:00 20:00
WBC 31.6 H
Hgb 9.7 L
Hct 28.2 L
Plt Count 237
Sodium 138 Pending Pending
Potassium 3.7 Pending Pending
Chloride 105 Pending Pending
Carbon Dioxide 27 Pending Pending
BUN 27 H Pending Pending
Creatinine 0.7 Pending Pending
Glucose 91 Pending Pending
Calcium 8.9 Pending Pending
Vital Signs:
Vital Signs
Temp Pulse Resp BP Pulse Ox
98.7 F 85 16 126/71 94
04/21/24 11:00 04/21/24 11:00 04/21/24 11:00 04/21/24 11:00 04/21/24 11:00
I&O
04/20/24 04/21/24 04/22/24
06:59 06:59 06:59
Intake Total 976 / 976 60 / 60 120 / 120
Output Total 250 / 250 800 / 800
Balance 726 / 726 60 / 60 -680 / -680
--- NOTE | 2024-04-21 11:27 | W.PN.ONC2 ---
Today's Communication / Plan
-
- stable for discharge
- script for fentanyl patch needed otherwise has PO oxycodone, anti-emetics, allopurinol at home.
- labs on 04/24, follow up on 04/26.
- ok to pull picc line.
Impression
Impression
newly diagnosed DLBCL
intractable pain -controlled
intractable nausea -controlled
normocytic anemia
Plan
Plan
C1 CHOP given in-pt 04/19 due to rapid progression of symptoms. tolerating well.
received Fulphilia long acting G-CSF 04/20. Suspect rise in WBC yesterday due to steroids and then marked rise today to 31 due to G-CSF, afebrile, non-toxic appearing.
continue allopurinol on discharge. TLS labs pending today however stable yesterday
pain control: controlled now with fentanyl patch alone. I suspect with initiation of tx, steroids pain will continue to improve. Continue fentanyl patch on discharge, has oxycodone 5 mg as needed already at home.
Dexamethasone 40mg x 4 days (04/18-04/21), PPI while on steroids
zofran, compazine prn nausea.
dvt ppx
Subjective/Objective
Chief Complaint
DLBCL
Subjective
pt overall feeling well today. she had mild nausea last night relieved with zofran. She required one dose of dilaudid as well for back pain. today pain well controlled. Denies fevers, chills.
Vital Signs:
Vital Signs
Temp Pulse Resp BP Pulse Ox
98.7 F 85 16 126/71 94
04/21/24 11:00 04/21/24 11:00 04/21/24 11:00 04/21/24 11:00 04/21/24 11:00
Lab Results:
Laboratory Data
WBC 31.6 10^3/uL (4.8-10.8) H 04/21/24 07:36
Hgb 9.7 g/dL (12.0-16.0) L 04/21/24 07:36
Plt Count 237 10^3/uL (130-400) 04/21/24 07:36
PT 14.1 Sec (11.4-14.6) 04/19/24 04:00
INR 1.09 04/19/24 04:00
eGFR > 60.00 04/21/24 07:36
Physical Exam
HEENT: No Jaundice
Cardiology: Normal Sinus Rhythm
Pulmonary: Clear
Extremities: No Edema
Neuro: Non Focal
Review of Systems
Review of Systems
Constitutional: Reports Fatigue; Denies Fever
Respiratory: Denies Dyspnea
Cardiovascular: Denies Chest Pain
Gastrointestinal: Denies Nausea/Vomiting or Diarrhea
Neurological: Denies Headache
[2024-04-21] MEDS: DURAGESIC 12 MCG/HR PATCH 1 PATCH TRANSDERM (11:50)
[2024-04-21 15:00] VITALS: BP 128/80
--- NOTE | 2024-04-21 15:16 | CM ---
Case management following for d/c planning
Met with pt at bedside
Reports will have ride at d/c
CM will follow for needs at d/c
Plan - anticipate home no needs
--- NOTE | 2024-04-21 16:23 | W.DS.TRANS ---
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
-
Discharge Instructions:
Sleep Apnea Risk Low
Discharge Diagnosis/Procedures Intractable pain likely secondary to cancer
related pain
Newly diagnosed DLBCL lymphoma
Premature Ventricular Contractions
Small Left Pleural Effusion with possible left
lower lobe airspace disease on Chest X-ray
Chest X-Ray Results (as per radiologist's
report)
IMPRESSION:
1. Small left pleural effusion, new compared to
prior chest x-ray.
2. Left lower lobe airspace disease may also be
present.
Echocardiogram Results (as per medical billing manager's
report)
'CONCLUSIONS
Normal left ventricular size, wall thickness and
systolic function. No regional
wall motion abnormalities are seen. LV ejection
fraction is 70-75% by Baxter's
method of discs. Normal diastolic function.
Baseline GLS is -22.8%.
Normal right ventricular size. Normal right
ventricular systolic function.
Mild mitral regurgitation.
Mild tricuspid regurgitation. Estimated
pulmonary artery pressure of 25-30
mmHg. Assuming a right atrial pressure of 3 mmHg
.
Compared to the previous echo 07/17/19, there is
no significant change.'
Diet Regular,As tolerated
Activity As tolerated
Instructions:
Stand-Alone Forms:
Changes to Home Medications: Yes
Discharge Medications:
DC Medications w/original date entered in [facility]
hydromorphone 4 mg tablet 4 mg PO Q6H PRN Pain #20 tabs 04/15/24
ondansetron 4 mg disintegrating tablet 4 mg PO TIDPRN PRN nausea/vomiting #20 tabs 04/15/24
allopurinol 300 mg tablet 300 mg PO ONCE Gout 04/17/24
oxycodone 10 mg tablet 5 mg PO Q4HPRN PRN moderate pain 04/17/24
fentanyl 12 mcg/hr transdermal patch 1 patch transdermal Q72H #1 patch 04/21/24
loratadine 10 mg tablet 10 mg PO DAILY 3 days #3 tabs 04/21/24
polyethylene glycol 3350 17 gram oral powder packet (HealthyLax) 17 g PO DAILYPRN PRN constipation #30 ea 04/21/24
sennosides 8.6 mg tablet (Senna Laxative) 8.6 mg PO BID #60 tabs 04/21/24
Home Medication Changes
Fentanyl is a new medication.
Loratadine is a new medication.
Continue taking Allopurinol daily at home -- if you need further guidance on Allopurinol dosing and how long you should take it, please call Dr. Criselda Rizzo' office.
HealthyLax and Senna Laxative are new medications to help prevent and treat constipation.
Pending Results: Yes
Additional Pending Results:
Follow-up pathology/lab results from hospitalization.
Total time spent discharging patient (in min): 39
--- NOTE | 2024-04-21 17:45 | PTCARENOTE ---
dc'd right picc without difficulty . md order. no bleeding noted. pressure dressing applied. pt aware of bedrest for 30 min. no complaints offered. call tate in reach
[2024-04-21] MEDS: LOVENOX SC (18:00)
--- NOTE | 2024-04-21 18:34 | PTCARENOTE ---
181 Pt dc'd to home with 12 mcg of fentanyl patch to right chest wall. Right upper Picc removed by IV team and dry pressure dressing clean and dry. No distress noted or reported.
== END 2024-04-21 18:20 | disposition home or self-care (01) | DRG 948 ==
LOC: 3 WEST ACU 23:38
PROVIDERS: Nurse Practitioner Acute Care; Radiology Vascular & Interventional Radiology; ADMITTING PHYSICIAN Internal Medicine; ATTENDING PHYSICIAN Hospitalist; CONSULT PHYSICIAN Internal Medicine Hematology & Oncology; EMERGENCY PHYSICIAN Emergency Medicine
DX: G89.3 Neoplasm related pain (acute) (chronic) (principal); C83.33 Diffuse large B-cell lymphoma, intra-abdominal lymph nodes; D64.9 Anemia, unspecified; M10.9 Gout, unspecified; K59.00 Constipation, unspecified; I25.2 Old myocardial infarction; R11.2 Nausea with vomiting, unspecified; R16.1 Splenomegaly, not elsewhere classified; Z79.899 Other long term (current) drug therapy; Z86.79 Personal history of other diseases of the circulatory system
CPT/HCPCS: 88305; 88311; 88312; 38222; 71045; 77012; 80048; 80053; 83615; 83735; 84100; 84550; 85025; 85610; 86704; 86706; 87340; 88313; 88341; 88342; 93306; 93356; 96361; 96374; 96375; 99284; J1453; J2469; J9070; J9073; Q5108

== ENCOUNTER → 2024-04-26 13:23 | Outpatient (REF) | payer OTHER, BC, SELFPAY ==
[2024-04-26 14:47] LABS: ALT (SGPT) 17 U/L (0-35); AST (SGOT) 23 U/L (14-36); Alkaline Phosphatase 62 U/L (38-126); Blood Urea Nitrogen 13 mg/dl (7-17); Calcium 8.9 mg/dl (8.4-10.2); Carbon Dioxide 26 mmol/L (22-30); Chloride 101 mmol/L (98-107); Glucose 92 mg/dl (70-99); LDH 231 U/L (120-246); Potassium 4.3 mmol/L (3.5-5.1); Sodium 135 mmol/L (135-145); Total Bilirubin 0.8 mg/dl (0.2-1.3); Total Protein 6.5 g/dl (6.3-8.2); Uric Acid 1.7 mg/dl (2.5-6.2); eGFR > 60.00
[2024-04-26 15:11] LABS: Hematocrit 29.2 % (37.0-47.0); Mean Corp Hgb Conc. 34.2 g/dL (33.0-37.0); Mean Corpuscular Hgb 27.6 pg (27.0-31.0); Mean Corpuscular Volume 80.7 fL (81.0-99.0); Mean Platelet Volume 11.3 fL (7.4-10.4); Platelet Count 162 10^3/uL (130-400); Red Blood Cell Count 3.62 10^6/uL (4.20-5.40); Red Cell Dist. Width 13.7 % (11.5-14.5)
[2024-04-26 15:12] LABS: Band Neutrophils 1 % (0-3); Eosinophils 19 % (0-6); Lymphocytes 55 % (20-51); Monocytes 7 % (2-9); Platelets Checked Yes; Segmented Neutrophils 15 % (42-75); Total Cells Counted 100
[2024-04-26 15:13] LABS: Atypical Lymphocytes 1 %; Metamyelocytes 1 % (-); Promyelocytes 1 % (-)
[2024-04-26 15:19] LABS: Absolute Neutrophils -Man Diff 0.1 10^3/uL (1.4-6.5); White Blood Cell Count 0.8 10^3/uL (4.8-10.8)
[2024-04-26 15:20] LABS: Normal RBC Morphology Yes
== END ==
LOC: RAD 13:23
PROVIDERS: ATTENDING PHYSICIAN Internal Medicine Hematology & Oncology
DX: R59.0 Localized enlarged lymph nodes (principal); C83.30 Diffuse large B-cell lymphoma, unspecified site
CPT/HCPCS: 36415; 71048; 74018; 80053; 83615; 84550; 85025

== ENCOUNTER 2024-04-26 21:39 | Inpatient (IN) | payer OTHER, BC, SELFPAY ==
[2024-04-26 19:37] VITALS: BMI 19.5
[2024-04-26 19:43] VITALS: BP 121/77
[2024-04-26 20:09] VITALS: BP 108/69
--- NOTE | 2024-04-26 20:22 | ED.GENMED ---
History of Present Illness
General
Chief Complaint: Fever
Source: patient
Exam Limitations: none
Time Seen by Provider: 04/26/24 20:06
Nursing documentation reviewed up to this point in time: agreed with
History of Present Illness
History of Present Illness:
patient to ED with complaint of fever and chest pain. She was discharged from her on 04/21 after admission for intractable pain, n/v. She is in treatment for Lymphoma. Last chemo infusion was 1 week ago. Today she reports chest pain and fever.
SHe was seen by Dr. Pacheco who ordered outpatient labs and CXR. CXR report: 'There is a small-moderate partially loculated left sided pleural fluid collection at the left lung base, only a portion of which layers in dependent position on the
lateral decubitus views'. Labs this afternoon: WBC 0.8, abs neut 0.1, bands 1 segs 15. She was advised by Dr Us to come to ED for admission. Temp 100.5-100.8. Ongoing abdominal and chest pain. Fentanyl patch in place but not
controlling her pain.
Past History
Past History
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
ED Past Surgical History: Cardiac (Cardiac catheterization July 2019 showing SCAD of circumflex) and Other (Retroperitoneal lymph node biopsy April 10, 2024)
Social History
Tobacco: Non-smoker
Alcohol: None
Drug: None
Personal:
Living: with family
Employment: Employed
Family History
Family History: Diabetes (Father)
Phy Exam
General Physical Exam
General Presentation: well appearing and mild distress
General age: appears stated age
General Skin: warm and dry
General Habitus: normal
General Mental: alert
Cardiovascular Exam
Cardiovascular Exam: tachycardia
Pulmonary Exam
Pulmonary Exam: no respiratory distress and decreased breath sounds (bilateral bases)
Gastrointestinal Exam
Gastrointestinal Exam: normal bowel sounds, non tender, soft, no organomegaly and non distended
Musculoskeletal Exam
Musculoskeletal Exam: full ROM and neuro vasc intact
Skin Exam
Skin Exam: normal color, warm/dry and no rash
Psychiatric Exam
Psychiatric Exam: normal mood/affect
Course
Orders/Labs/Results
Orders:
Orders
04/26/24 19:45
Electrocardiogram (*1) Urgent
Reason for Study: Chest Pain
EKG- Treatment ONCE
04/26/24 20:36
Lactic Acid Urgent
Blood Culture Urgent
ROMINA Source: Blood/Venous
Specimen Description:
04/26/24 20:46
Cefepime HCl [Maxipime] 2,000 mg IV NOW STA
04/26/24 20:47
HYDROmorphone [Dilaudid] 0.5 mg IV NOW STA
Ondansetron Injectable [Zofran] 4 mg IV NOW STA
04/26/24 20:48
0.9% Sodium Chloride 1000 ml [Nss] 1,000 ml IV BOLUS
04/26/24 21:32
Admit/Transfer Patient As Directed
Co-Sign Provider:
Level of Care: Inpatient admission
Assign to:: Medical/Surgical
Physician / Group: [place]
Diagnosis: neutropenic sepsis pneumonia
Reason for Hospitalization: neutropenic sepsis pneumonia
Expected length of stay greater than two midnights?: Yes
ELOS- Estimated Length of Stay in days: 2
I certify the patient meets the requirements for IP care: Yes
04/26/24 21:33
Code Status As Directed
Resuscitation Status: Full Code
04/26/24 21:35
Blood Culture Urgent
ROMINA Source: Blood/Venous
Specimen Description:
04/26/24 19:45
04/26/24 19:45
Vital Signs
Initial and Last Documented VS:
Initial Vital Signs
Temp Pulse Resp BP Pulse Ox
98.7 F 122 20 121/77 97
04/26/24 19:43 04/26/24 19:43 04/26/24 19:43 04/26/24 19:43 04/26/24 19:43
Last Documented Vital Signs
Temp Pulse Resp BP Pulse Ox
98.7 F 99 20 115/72 95
04/26/24 19:43 04/26/24 21:45 04/26/24 21:45 04/26/24 21:00 04/26/24 21:45
*Critical Care Note
Total Time (30-74mins, 75-104mins- exclusive of procedures): Not Applicable
ED Attending Note
-
Portions of this chart may have been created with voice recognition software.� Occasional wrong word or��sound alike� substitutions may have occurred due to the inherent limitations of voice recognition software.
Discharge Plan
Departure
Patient Disposition: Admit
Date of Disposition: 04/26/24
Time of Disposition: 20:47
Presentation/result/management discussed w/ accepting MD/DO: Hospitalist
Condition: Fair
Covid-19: Not Applicable
Discharge Problem:
Fever and neutropenia
Interventions
Interventions:
*Risk Screen - Suicide Last Done: 04/26/24 19:43
*General Assessment Last Done: 04/26/24 20:41
*Neglect/Abuse Screening Last Done: 04/26/24 19:43
ED- Fall Risk Assessment Last Done: 04/26/24 20:41
*ED COVID-19 Vaccine History Last Done: 04/26/24 20:41
ED- Neurological Assessment Last Done: 04/26/24 20:41
ED-Skin Assessment Last Done: 04/26/24 20:41
[2024-04-26 20:56] LABS: Lactic Acid 1.7 mmol/L (0.7-2.0)
[2024-04-26 21:00] VITALS: BP 115/72
[2024-04-26] MEDS: NSS 1000 IV ×2 (21:02→23:28)
[2024-04-26] MEDS: ZOFRAN 4 MG IV (21:02)
[2024-04-26] MEDS: DILAUDID 0.5 MG IV (21:03)
[2024-04-26] MEDS: MAXIPIME 2000 MG IV (21:06)
--- NOTE | 2024-04-26 21:40 | HPS.HSE ---
Family Physician
-
Family Physician: * NONE
Chief Complaint
-
fever
History of Present Illness
48-year-old female past medical history of large B cell lymphoma on chemotherapy, coronary artery disease, spontaneous coronary artery dissection, peripartum cardiomyopathy, PVCs, presenting with fever and chest pain starting today. She was seen by
Dr. Us ordered outpatient labs and chest x-ray which showed small to moderate partially loculated left-sided pleural effusion collection at the left lung base and was referred to the emergency room. Patient last received chemotherapy 1
week ago.
Chest pain is described as pressure and located in the center of the chest worse with breathing. She has slight dry cough. Denies sore throat or runny nose. She denies nausea vomiting or diarrhea. Denies any urinary symptoms.
Patient was recently admitted from 04/17 to 04/21 for cancer related pain. During hospitalization patient also had asymptomatic PVCs. Fentanyl patch was started. She has been having ongoing abdominal and chest pain that is not adequately controlled
with fentanyl patch.
Patient denies smoking or alcohol use.
Medical History
Past Medical History
Past Medical History: Reports Other ( large B cell lymphoma on chemotherapy, coronary artery disease, spontaneous coronary artery dissection, peripartum cardiomyopathy, PVCs)
Past Surgical History: Reports Other ( Cardiac (Cardiac catheterization July 2019 showing SCAD of circumflex) and Other (Retroperitoneal lymph node biopsy April 10, 2024))
Social History
Tobacco: Non-smoker
Alcohol: None
Drug: None
Family History
Family History: Not pertinent
Allergies / Home Medications
Allergies reflects when Allergies were last updated in [facility].
Home Medications with original date entered in [facility]
Allergy/Medication List:
Allergies
Allergy/AdvReac Type Severity Reaction Status Date / Time
hazelnut Allergy Itching Verified 04/26/24 19:43
Home Medications
hydromorphone 4 mg tablet 4 mg PO Q6H PRN Pain #20 tabs 04/15/24
ondansetron 4 mg disintegrating tablet 4 mg PO TIDPRN PRN nausea/vomiting #20 tabs 04/15/24
oxycodone 10 mg tablet 5 mg PO Q4HPRN PRN moderate pain 04/17/24
allopurinol 300 mg tablet See Rx Instructions .Route .COMPLEX Gout #7 tabs 04/21/24
fentanyl 12 mcg/hr transdermal patch 1 patch transdermal Q72H #1 patch 04/21/24
loratadine 10 mg tablet 10 mg PO DAILY 3 days #3 tabs 04/21/24
polyethylene glycol 3350 17 gram oral powder packet (HealthyLax) 17 g PO DAILYPRN PRN constipation #30 ea 04/21/24
sennosides 8.6 mg tablet (Senna Laxative) 8.6 mg PO BID #60 tabs 04/21/24
Review of Systems
-
History Source: Patient
A 12 point ROS was completed and negative except as noted: Yes
Constitutional: Reports No Symptoms
EENT: Reports No Symptoms
Respiratory: Reports No Symptoms
Cardiac: Reports No Symptoms
Abdomen/GI: Reports No Symptoms
: Reports No Symptoms
Musculoskeletal: Reports No Symptoms
Skin: Reports No Symptoms
Neurological: Reports No Symptoms
Endocrine: Reports No Symptoms
Hematologic/Lymphatic: Reports No Symptoms
Psych: Reports No Symptoms
Physical Exam
Vital Signs
Vital Signs
Temp Pulse Resp BP Pulse Ox
98.7 F 104 23 108/69 96
04/26/24 19:43 04/26/24 20:45 04/26/24 20:45 04/26/24 20:09 04/26/24 20:45
Physical Exam
General: Well Developed, Well Nourished and No Apparent Distress
HEENT: NormoCephalic, Moist mucous membranes and Atraumatic
Respiratory: Clear
Cardiac: S1/S2 and Regular Rhythm; No Murmur or Rub
GI: Soft, Non Tender, Non Distended and Normal Bowel Sounds; No Organomegaly
Rectal: Deferred by Provider
Musculoskeletal: No Clubbing, No Cyanosis and No Edema
Skin: No Rash
Neuro: Nonfocal/grossly intact
Laboratory Results
-
04/26/24 19:45
04/26/24 19:45
Laboratory Results
Lactic Acid 1.7 mmol/L (0.7-2.0) 04/26/24 20:36
Total Bilirubin Cancelled 04/26/24 19:45
AST Cancelled 04/26/24 19:45
ALT Cancelled 04/26/24 19:45
Alkaline Phosphatase Cancelled 04/26/24 19:45
Troponin I Cancelled 04/26/24 19:45
Data Reviewed
-
Lab Data: Labs Reviewed by me
Old Records: Reviewed
Impression/Plan
-
IMPRESSION:
PLAN:
# Neutropenic sepsis (leukopenia, fever, tachycardia, tachypnea) secondary to left-sided empyema
-EKG sinus tachycardia
-ANC of 100
-Chest x-ray shows small to moderate partially loculated left-sided pleural effusion collection at the left lung base
-Abdominal x-ray unremarkable
-IV fluids
-Check blood cultures
-Zosyn
-IR consulted for thoracentesis
-Oncology consulted
History of diffuse large B-cell lymphoma
-On chemotherapy last received 1 week ago
-Continue allopurinol
-Continue oxycodone, Dilaudid, fentanyl patch
-Continue bowel regimen
Chronic anemia
-Stable
Coronary artery disease
Spontaneous coronary artery dissection
Peripartum cardiomyopathy
History of asymptomatic PVCs
Full code
DVT prophylaxis�heparin
Regular diet
[2024-04-26 23:00] VITALS: BP 114/75; BMI 19.5
[2024-04-26] MEDS: ZOSYN 50 IV (23:28)
[2024-04-26] MEDS: DILAUDID 4 MG PO (23:28)
[2024-04-26] MEDS: ZYLOPRIM 300 MG PO (23:32)
--- NOTE | 2024-04-26 23:45 | PTCARENOTE ---
04/26 Received patient from ED. Patient ambulated to the bedside with min assist. Patient AAOx3, drowsy, lungs decrease, heart rate regular, no edema, positive pulses. She said her pain in low back and upper chest was controlled in the ED with IV
Dilaudid. VSS. IVF infusing. Patient verbalized an understanding to ring as needed. Call tate in reach. Patient oriented to the unit.
[2024-04-27] MEDS: DURAGESIC 12 MCG/HR PATCH 1 PATCH TRANSDERM (00:09)
[2024-04-27] MEDS: DILAUDID 0.5 MG IV (00:39)
[2024-04-27] MEDS: ROXICODONE 5 MG PO ×5 (05:05→23:29)
[2024-04-27 05:25] VITALS: BMI 19.5
[2024-04-27] MEDS: ZOSYN 50 IV ×4 (06:07→23:13)
[2024-04-27 07:00] VITALS: BP 102/71
--- NOTE | 2024-04-27 07:37 | W.PN.HOSP.TC ---
Today's Communication/Plan
-
see bold
Assessment / Plan
Assessment / Plan
Gen: NAD, AAOx3, appears chronically ill and malnourished.
Eyes: EOMI, PERRLA, no scleral icterus.
Neck: supple.
CV: RRR, +S1/S2, no m/r/g.
Resp: CTAB anteriorly, no rales, wheezes, or rhonchi.
Abd: +BS, soft, NT, ND
Skin: No rashes.
Neuro: CN 2-12 intact, non-focal.
Psych: Normal mood and affect.
CXR: There is a small-moderate partially loculated left sided pleural fluid collection at the left lung base, only a portion of which layers in dependent position on the lateral decubitus views.
Abd Xray: Nonobstructive bowel gas pattern.
Neutropenic sepsis:
-ANC of 100 on admission
-possibly due to left-sided empyema
-c/s IR for Dx/Tx thoracentesis
-c/s ID
-cont IVFs
-cont Zosyn
-follow BCxs
-Oncology consulted
History of diffuse large B-cell lymphoma
-On chemotherapy last received 1 week [employer]
-Continue allopurinol
-Continue oxycodone, Dilaudid, fentanyl patch
-Continue bowel regimen
Other problems:
Chronic anemia, pancytopenia
Coronary artery disease
Spontaneous coronary artery dissection
Peripartum cardiomyopathy
History of asymptomatic PVCs
FULL/heparin
Anticipated Discharge: > 48 hours
Subjective/Interval History
-
Date of Service: April 27, 2024
Denies CP. Reports B/L low back pain.
Objective Data
-
Labs:
Laboratory Results
04/26/24 04/27/24
19:45 06:41
WBC Cancelled Pending
Hgb Cancelled Pending
Hct Cancelled Pending
Plt Count Cancelled Pending
Sodium Cancelled Pending
Potassium Cancelled Pending
Chloride Cancelled Pending
Carbon Dioxide Cancelled Pending
BUN Cancelled Pending
Creatinine Cancelled Pending
Glucose Cancelled Pending
Calcium Cancelled Pending
Total Bilirubin Cancelled Pending
AST Cancelled Pending
ALT Cancelled Pending
Alkaline Phosphatase Cancelled Pending
Vital Signs:
Vital Signs
Temp Pulse Resp BP Pulse Ox
98.0 F 101 18 114/75 97
04/26/24 23:00 04/26/24 23:00 04/26/24 23:00 04/26/24 23:00 04/26/24 23:00
I&O
04/26/24 04/27/24 04/28/24
06:59 06:59 06:59
Intake Total 820 / 820
Balance 820 / 820
[2024-04-27 07:38] LABS: Hematocrit 22.7 % (37.0-47.0); Hemoglobin 7.8 g/dL (12.0-16.0); Mean Corp Hgb Conc. 34.4 g/dL (33.0-37.0); Mean Corpuscular Volume 84.4 fL (81.0-99.0); Mean Platelet Volume 11.4 fL (7.4-10.4); Platelet Count 102 10^3/uL (130-400); Red Blood Cell Count 2.69 10^6/uL (4.20-5.40); Red Cell Dist. Width 13.3 % (11.5-14.5); White Blood Cell Count 1.9 10^3/uL (4.8-10.8)
[2024-04-27 07:57] LABS: ALT (SGPT) 13 U/L (0-35); AST (SGOT) 17 U/L (14-36); Albumin 2.9 g/dl (3.5-5.0); Alkaline Phosphatase 57 U/L (38-126); Blood Urea Nitrogen 8 mg/dl (7-17); Calcium 8.4 mg/dl (8.4-10.2); Carbon Dioxide 29 mmol/L (22-30); Chloride 103 mmol/L (98-107); Estimated Creatinine Clearance 96 ml/min; Glucose 86 mg/dl (70-99); LDH 193 U/L (120-246); Potassium 3.2 mmol/L (3.5-5.1); Sodium 136 mmol/L (135-145); Total Bilirubin 0.5 mg/dl (0.2-1.3); Total Protein 4.9 g/dl (6.3-8.2); eGFR > 60.00
[2024-04-27] MEDS: TYLENOL 650 MG PO ×2 (08:04→17:09)
[2024-04-27 08:43] LABS: Band Neutrophils 27 % (0-3); Eosinophils 7 % (0-6); Lymphocytes 20 % (20-51); Monocytes 6 % (2-9); Segmented Neutrophils 29 % (42-75)
[2024-04-27 08:44] LABS: Metamyelocytes 5 % (-); Myelocytes 6 % (-); Platelets Checked Yes
[2024-04-27 08:45] LABS: Normal RBC Morphology Yes; Total Cells Counted 100
[2024-04-27] MEDS: ZYLOPRIM 300 MG PO (09:36)
[2024-04-27] MEDS: CLARITIN 10 MG PO (09:36)
[2024-04-27] MEDS: SENOKOT 8.6 MG PO ×2 (09:38→19:29)
[2024-04-27] MEDS: KCL 40 MEQ PO (09:39)
[2024-04-27] MEDS: NSS 1000 IV ×2 (09:40→17:06)
[2024-04-27] MEDS: HEPARIN 5000 UNITS SC ×2 (09:43→19:21)
--- NOTE | 2024-04-27 09:56 | CON.ONC ---
Impression
Impression
Left pleural effusion with pleuritic discomfort
Neutropenic fever
Diffuse large B-cell lymphoma FISH pending status post cycle 1 CHOP
Pain syndrome
Plan
Plan
Monitor CBC with differential- WBC is improved today ANC 1000
Received growth factor support with cycle 1
Monitor effusion and results from planned thoracentesis
Bone marrow biopsy pending
Anemia with microcytosis evaluate iron stores
Will follow
Patient History
History of Present Illness
Patient is a 48-year-old female with a past medical a recently diagnosed diffuse large B-cell lymphoma FISH studies pending received initial cytoreductive cycle of CHOP during recent hospitalization to reduce malignancy associated pain. Her
medical history includes coronary artery disease, spontaneous coronary dissection, peripartum cardiomyopathy and symptomatic PVCs. Diagnostic evaluation revealed left lower lobe pleural effusion and neutropenia. She has been admitted to the
hospital for broad-spectrum antibiotics and additional support
Past-Medical/Surgical History
Past Medical History Diffuse large B-cell lymphoma status post cycle 1 CHOP, coronary artery disease, spontaneous coronary artery dissection, peripartum cardiomyopathy, PVCs
Past Surgical History Cardiac catheterization July 2019 showing SCAD of circumflex and lymph node biopsy April 10, 2024
Social History
Tobacco: Non-smoker
Alcohol: None
Drug: None
Family History
Family History: Not pertinent
Patient Medication
�Medication �Instructions �Recorded �Confirmed �Last Taken �Type
hydromorphone 4 mg tablet 4 mg PO Q6H PRN Pain #20 tabs 04/15/24 04/17/24 Unknown Rx
ondansetron 4 mg disintegrating 4 mg PO TIDPRN PRN nausea/vomiting 04/15/24 04/17/24 Unknown Rx
tablet #20 tabs
oxycodone 10 mg tablet 5 mg PO Q4HPRN PRN moderate pain 04/17/24 04/17/24 04/17/24 13:00 History
allopurinol 300 mg tablet See Rx Instructions .Route 04/21/24 04/17/24 04/17/24 18:00 Rx
.COMPLEX Gout #7 tabs
fentanyl 12 mcg/hr transdermal 1 patch transdermal Q72H #1 patch 04/21/24 Unknown Rx
patch
loratadine 10 mg tablet 10 mg PO DAILY 3 days #3 tabs 04/21/24 Unknown Rx
polyethylene glycol 3350 17 gram 17 g PO DAILYPRN PRN constipation 04/21/24 Unknown Rx
oral powder packet (HealthyLax) #30 ea
sennosides 8.6 mg tablet (Senna 8.6 mg PO BID #60 tabs 04/21/24 Unknown Rx
Laxative)
Active Medications
Generic Name Dose Route Start Last Admin
Trade Name Freq PRN Reason Stop Dose Admin
Acetaminophen 650 mg 04/26/24 22:35 04/27/24 08:04
Acetaminophen 325 Mg Tablet PO 05/24/24 22:34 650 mg
Q4HPRN PRN Administration
mild pain/CASTRO/temp> 100.4F
Allopurinol 300 mg 04/26/24 22:35 04/27/24 09:36
Allopurinol 300 Mg Tablet PO 05/24/24 22:34 300 mg
DAILY MIGUEL Administration
Fentanyl 1 patch 04/27/24 00:00 04/27/24 00:09
Fentanyl 12 Mcg/Hr Patch TRANSDERM 05/11/24 00:00 1 patch
Q72H MIGUEL Administration
Heparin Sodium 5,000 units 04/27/24 08:00 04/27/24 09:43
Heparin 5,000 Units/Ml 1 Ml Vial SC 05/25/24 07:59 5,000 units
Q12 MIGUEL Administration
Hydromorphone HCl 4 mg 04/26/24 22:35 04/26/24 23:28
Hydromorphone 4 Mg Tablet PO 05/10/24 22:34 4 mg
Q6HPRN PRN Administration
severe pain
Sodium Chloride 1,000 mls @ 100 mls/hr 04/26/24 22:35 04/27/24 09:40
Nss IV 1,000 mls
.Q10H MIGUEL Administration
Piperacillin Sod/Tazobactam Sod 3.375 gram in 50 mls @ 100 mls/hr 04/27/24 00:00 04/27/24 06:07
Zosyn IV 50 mls
Q6H MIGUEL Administration
Loratadine 10 mg 04/27/24 08:00 04/27/24 09:36
Loratadine 10 Mg Tablet PO 05/25/24 07:59 10 mg
DAILY MIGUEL Administration
Ondansetron HCl 4 mg 04/26/24 22:35
Ondansetron 4 Mg/2 Ml Vial IV 05/24/24 22:34
Q6HPRN PRN
nausea and vomiting
Ondansetron HCl 4 mg 04/26/24 22:35
Ondansetron 4 Mg (Orally-Disintegrating) Tablet PO 05/24/24 22:34
TIDPRN PRN
nausea/vomiting
Oxycodone HCl 5 mg 04/26/24 22:43 04/27/24 05:05
Oxycodone 5 Mg Regular Release Tablet PO 05/10/24 22:42 5 mg
Q4HPRN PRN Administration
moderate pain
Patch Removal 0 patch 04/27/24 00:00 04/27/24 00:09
Remove Fentanyl Patch REMOVE 05/11/24 00:00 12 patch
Q72H MIGUEL Administration
Polyethylene Glycol 17 grams 04/26/24 22:35
Polyethylene Glycol Powder 17 Grams Packet PO 05/24/24 22:34
DAILYPRN PRN
constipation
Sennosides 8.6 mg 04/27/24 08:00 04/27/24 09:38
Sennosides (Senokot) 8.6 Mg Tablet PO 05/25/24 07:59 8.6 mg
BID MIGUEL Administration
Sodium Chloride 0 flush 04/26/24 23:00
Sodium Chloride 0.9% (Flush) Syringe IV 05/24/24 22:59
PER PROTOCOL MIGUEL
Review of Systems
-
12 point review of systems feels elicit additional complaints of nose reviewed in the HPI
Physical Exam
-
Physical Exam
General: Well Developed, Well Nourished and No Apparent Distress
HEENT: NormoCephalic, Moist mucous membranes and Atraumatic
Respiratory: Clear
Cardiac: S1/S2 and Regular Rhythm; No Murmur or Rub
GI: Soft, Non Tender, Non Distended and Normal Bowel Sounds; No Organomegaly
Rectal: Deferred by Provider
Musculoskeletal: No Clubbing, No Cyanosis and No Edema
Skin: No Rash
Neuro: Nonfocal/grossly intact
Labs
Lab Results
WBC 1.9 10^3/uL (4.8-10.8) L* 04/27/24 06:41
RBC 2.69 10^6/uL (4.20-5.40) L 04/27/24 06:41
Hgb 7.8 g/dL (12.0-16.0) L D 04/27/24 06:41
Hct 22.7 % (37.0-47.0) L 04/27/24 06:41
MCV 84.4 fL (81.0-99.0) 04/27/24 06:41
MCH 29.0 pg (27.0-31.0) 04/27/24 06:41
MCHC 34.4 g/dL (33.0-37.0) 04/27/24 06:41
RDW 13.3 % (11.5-14.5) 04/27/24 06:41
Plt Count 102 10^3/uL (130-400) L D 04/27/24 06:41
MPV 11.4 fL (7.4-10.4) H 04/27/24 06:41
Abs Immat Gran (auto) Cancelled 04/26/24 19:45
Absolute Neuts (auto) Cancelled 04/26/24 19:45
Absolute Lymphs (auto) Cancelled 04/26/24 19:45
Absolute Monos (auto) Cancelled 04/26/24 19:45
Absolute Eos (auto) Cancelled 04/26/24 19:45
Absolute Basos (auto) Cancelled 04/26/24 19:45
Immature Gran % Cancelled 04/26/24 19:45
Neutrophils % Cancelled 04/26/24 19:45
Lymphocytes % Cancelled 04/26/24 19:45
Monocytes % Cancelled 04/26/24 19:45
Eosinophils % Cancelled 04/26/24 19:45
Basophils % Cancelled 04/26/24 19:45
Creatinine 0.6 mg/dL (0.6-1.0) 04/27/24 06:41
Vital Signs
Vital Signs
Temp Pulse Resp BP Pulse Ox
98.2 F 98 14 102/71 98
04/27/24 07:00 04/27/24 07:00 04/27/24 07:00 04/27/24 07:00 04/27/24 07:00
--- NOTE | 2024-04-27 11:23 | CON.ID ---
Consultation
-
Date/Time Consultation Requested: 04/27/24 7:43
Date/Time Consultation Performed: 04/27/24 11:23
Requesting Provider: Dr Leyva
Performing Provider: Dr Shaw
Reason for Consultation: neutropenic fever
Chief Complaint / Past History
Chief Complaint
fever
History of Present Illness
Ms Alvarez is a 48 year old female with history of large B cell lymphoma on chemotherapy (last chemotherapy was 1 week ago), spontaneous CA dissection, peripartum cardiomyopathy presenting here for fever and chest pain which began yesterday.
Chest pain is central, pressue like, pleuritic. Minimal dry cough, no sore throat or runny nose. No nausea, vomiting, diarrhea or dysuria. She was seen by her oncologist Dr Us who ordered CXR and noted moderate, partially loculated L
sided pleural effusion at the L lung base and referred her to the ER. Never been intubated. No coughing or choking when she eats. No recent episodes of pneumonia. No history of colonization with MDROs
Since arrival here she has been afebrile, bp stable, wbc yesterday 0.8 today 1.9, hgb yesterday 10 today 7.8, plt today 102, ANC yesterday 0.1 today 1.0 with 27% bands, cr 0.6, t bili 0.5, ast 17, alt 13, alk phos 57, CXR: small-moderate partially
loculated left sided pleural fluid collection at the left lung base, only a portion of which layers in dependent position on the lateral decubitus views, AXR: nonobstructive bowel gas pattern, blood cultures x2 in progress, currently on zosyn, no
previous cultures at this institution
Past History
Additional Past Medical History:
large B cell lymphoma on chemotherapy, coronary artery disease, spontaneous coronary artery dissection, peripartum cardiomyopathy, PVCs
Additional Past Surgical History:
Cardiac catheterization July 2019 showing SCAD of circumflex) and Other (Retroperitoneal lymph node biopsy April 10, 2024))
Allergy History:
hazelnut Allergy (Verified 04/26/24 19:43)
Itching
Medications Reviewed: Yes
Social History
Tobacco: Non-Smoker
Alcohol: None
Drug: None
Family History
Family History: Not Pertinent
Review of Systems
Review of Systems
General: Fever and Chills
All systems: All other systems were reviewed and were negative
Vital Signs
Temp Pulse Resp BP Pulse Ox
98.2 F 98 14 102/71 98
04/27/24 07:00 04/27/24 07:00 04/27/24 07:00 04/27/24 07:00 04/27/24 07:00
Physical Exam
Physical Exam
Constitutional: No Acute Distress
Cardiovascular: Regular Rate and S1/S2; Negative Murmur or Rub
Pulmonary: Clear and Symmetric; Negative Wheezes, Rales or Rhonchi
Gastrointestinal: Soft, Non Tender, Non Distended and Normal Bowel Sounds
Skin: Warm and Dry; Negative Rash or Jaundice
Lab / Diagnostic Study Results
04/27/24 06:41
04/27/24 06:41
Abs Immat Gran (auto) Cancelled 04/26/24 19:45
Absolute Neuts (auto) Cancelled 04/26/24 19:45
Absolute Lymphs (auto) Cancelled 04/26/24 19:45
Absolute Monos (auto) Cancelled 04/26/24 19:45
Absolute Basos (auto) Cancelled 04/26/24 19:45
Total Counted 100 04/27/24 06:41
Immature Gran % Cancelled 04/26/24 19:45
Neutrophils % Cancelled 04/26/24 19:45
Lymphocytes % Cancelled 04/26/24 19:45
Monocytes % Cancelled 04/26/24 19:45
Eosinophils % Cancelled 04/26/24 19:45
Basophils % Cancelled 04/26/24 19:45
Abs Neuts (Manual) 1.0 10^3/uL (1.4-6.5) L 04/27/24 06:41
Segmented Neutrophils 29 % (42-75) L 04/27/24 06:41
Band Neutrophils 27 % (0-3) H D 04/27/24 06:41
Lymphocytes (Manual) 20 % (20-51) 04/27/24 06:41
Eosinophils (Manual) 7 % (0-6) H 04/27/24 06:41
Lactic Acid 1.7 mmol/L (0.7-2.0) 04/26/24 20:36
Microbiology Results
Micro:
04/26/24 22:14 Blood Culture - Pending
Blood/Venous
04/26/24 20:36 Blood Culture - Pending
Blood/Venous
Assessment / Plan
Neutropenic Fever
Loculated L sided Pleural Effusion
Diffuse large B-cell lymphoma FISH pending status post cycle 1 CHOP
- blood cultures x2
- sputum culture if able to produce one
- neutropenia improving
- chest US urgent - assess if safe for thoracentesis
- IR has been consulted for possible thoracentesis
- continue zosyn for now - follow clinically
[2024-04-27 14:54] LABS: Iron 52 ug/dl (37-170)
[2024-04-27 15:02] LABS: Percent Saturation 21 % (20-50); Total Iron Binding Capacity 245 ug/dl (265-497)
[2024-04-27 15:09] VITALS: BP 108/71
[2024-04-27] MEDS: ZOFRAN ODT (ORALLY DISINTEGRATING) 4 MG PO (23:13)
[2024-04-27 23:19] VITALS: BP 123/77
--- NOTE | 2024-04-28 00:10 | PTCARENOTE ---
Addendum entered by Chris Sanchez RN 04/28/24 00:35:
Patient is aware she may use a BSC if preferred.
Original Note:
Patient reported she had pressure in her central chest area worse with breathing while ambulating to the bathroom about an hour ago. She said it was 'exactly' like it was when she came in to the ED yesterday. She said it resolved completely after
getting back in bed. Advised JESSE Leyva. Orders received for EKG and Troponin.
[2024-04-28 00:45] LABS: Troponin I 0.126 ng/ml
--- NOTE | 2024-04-28 01:08 | PTCARENOTE ---
Troponin 0.126. JESSE Leyva aware. Orders promptly received.
[2024-04-28] MEDS: NSS 1000 IV (04:12)
[2024-04-28] MEDS: ZOSYN 50 IV ×4 (05:43→23:05)
[2024-04-28 06:00] VITALS: BMI 19.6
[2024-04-28 06:49] LABS: Blood Urea Nitrogen 4 mg/dl (7-17); Calcium 8.3 mg/dl (8.4-10.2); Carbon Dioxide 29 mmol/L (22-30); Chloride 104 mmol/L (98-107); Estimated Creatinine Clearance 96 ml/min; Glucose 87 mg/dl (70-99); Potassium 3.5 mmol/L (3.5-5.1); Sodium 136 mmol/L (135-145); eGFR > 60.00
[2024-04-28 07:05] LABS: Troponin I 0.123 ng/ml
[2024-04-28 07:06] LABS: Hematocrit 22.9 % (37.0-47.0); Mean Corp Hgb Conc. 34.9 g/dL (33.0-37.0); Mean Corpuscular Hgb 28.2 pg (27.0-31.0); Mean Corpuscular Volume 80.6 fL (81.0-99.0); Mean Platelet Volume 11.8 fL (7.4-10.4); Platelet Count 115 10^3/uL (130-400); Red Blood Cell Count 2.84 10^6/uL (4.20-5.40); Red Cell Dist. Width 13.2 % (11.5-14.5); White Blood Cell Count 10.1 10^3/uL (4.8-10.8)
[2024-04-28] MEDS: SENOKOT 8.6 MG PO ×2 (07:54→19:42)
[2024-04-28] MEDS: HEPARIN 5000 UNITS SC ×2 (07:54→19:41)
[2024-04-28] MEDS: ZYLOPRIM 300 MG PO (07:54)
[2024-04-28] MEDS: CLARITIN 10 MG PO (07:54)
[2024-04-28 07:55] VITALS: BP 114/77
[2024-04-28 08:27] LABS: Absolute Neutrophils -Man Diff 7.6 10^3/uL (1.4-6.5); Atypical Lymphocytes 1 %; Band Neutrophils 29 % (0-3); Eosinophils 1 % (0-6); Lymphocytes 7 % (20-51); Metamyelocytes 8 % (-); Monocytes 5 % (2-9); Myelocytes 2 % (-); Segmented Neutrophils 47 % (42-75)
[2024-04-28 08:28] LABS: Anisocytosis Slight; Hypochromasia Slight; Normal RBC Morphology No; Ovalocytes 1+; Platelets Checked Yes; Polychromasia 1+; Total Cells Counted 100
--- NOTE | 2024-04-28 10:04 | W.PN.HOSP.TC ---
Today's Communication/Plan
-
see bold
Assessment / Plan
Assessment / Plan
Gen: NAD, AAOx3, appears chronically ill and malnourished.
Eyes: EOMI, PERRLA, no scleral icterus.
Neck: supple.
CV: tachy, reg rhythm, +S1/S2
Resp: remains CTAB anteriorly, no rales, wheezes, or rhonchi.
Abd: remains +BS, soft, NT, ND
Skin: No rashes.
Neuro: CN 2-12 intact, non-focal.
Psych: Normal mood and affect.
04/26/24 22:14 Blood/Venous Blood Culture - Preliminary
No Growth in 24 hours- Final report to follow
04/26/24 20:36 Blood/Venous Blood Culture - Preliminary
No Growth in 24 hours- Final report to follow
CXR: There is a small-moderate partially loculated left sided pleural fluid collection at the left lung base, only a portion of which layers in dependent position on the lateral decubitus views.
Abd Xray: Nonobstructive bowel gas pattern.
Echo 04/18/24:
Normal left ventricular size, wall thickness and systolic function. No regional
wall motion abnormalities are seen. LV ejection fraction is 70-75% by Baxter's
method of discs. Normal diastolic function.
Baseline GLS is -22.8%.
Normal right ventricular size. Normal right ventricular systolic function.
Mild mitral regurgitation.
Mild tricuspid regurgitation. Estimated pulmonary artery pressure of 25-30
mmHg. Assuming a right atrial pressure of 3 mmHg.
Compared to the previous echo 07/17/19, there is no significant change.
Neutropenic sepsis:
-ANC of 100 on admission. Neutropenia has resolved.
-possibly due to left-sided empyema
-chest U/S ordered
-BCxs NGTD
-ID following
-c/s IR for Dx/Tx thoracentesis
-cont IVFs
-cont Zosyn
Persistent chest pressure:
-Trops minimally elevated and flat (follow third trop)
-ECG (read by me): NSR @ 99, nl axis/intervals, no acute ST/TW changes
-h/o CAD with spontaneous coronary artery dissection
-recent echo above
-suspect nonischemic myocardial injury
-place on tele
-give ASA 324mg x 1
-c/s cardiology
History of Diffuse large B-cell lymphoma:
-FISH pending, s/p cycle 1 CHOP (1 week [facility])
-Continue allopurinol
-Continue oxycodone, Dilaudid, fentanyl patch
-Continue bowel regimen
-ONC following
Other problems:
Headache: Fioricet given prior to the time pt complained to me of chest pain. Stop Fioricet.
Chronic anemia
Pancytopenia (POA)
Peripartum cardiomyopathy
History of asymptomatic PVCs
FULL/heparin
Total time spent on today's encounter was 50 minutes which included time spent in counseling the patient/family regarding diagnosis and treatment plan as listed above, goals of care, and symptom management. Case was discussed with nursing staff,
specialists, and care coordinators/case management. All labs and imaging personally reviewed by me. Remainder the time spent in detailed review of previous records, lab data, imaging, and other medical provider documentation.
Anticipated Discharge: 24 - 48 hours
Subjective/Interval History
-
Date of Service: April 28, 2024
Pt c/o headache. Also complains of chest tightness.
Objective Data
-
Labs:
Laboratory Results
04/28/24
06:02
WBC 10.1
Hgb 8.0 L
Hct 22.9 L
Plt Count 115 L
Sodium 136
Potassium 3.5
Chloride 104
Carbon Dioxide 29
BUN 4 L
Creatinine 0.6
Glucose 87
Calcium 8.3 L
Vital Signs:
Vital Signs
Temp Pulse Resp BP Pulse Ox
98.2 F 97 16 114/77 96
04/28/24 07:55 04/28/24 07:55 04/28/24 07:55 04/28/24 07:55 04/28/24 09:28
I&O
04/27/24 04/28/24 04/29/24
06:59 06:59 06:59
Intake Total 820 / 820 3820 / 3820
Balance 820 / 820 3820 / 3820
[2024-04-28] MEDS: FIORICET 1 TAB PO (10:53)
[2024-04-28] MEDS: ASPIRIN 325 MG PO (12:22)
[2024-04-28 13:00] LABS: Troponin I 0.097 ng/ml
--- NOTE | 2024-04-28 13:02 | CON.CAR ---
Addendum entered and electronically signed by Jarad Chowdhury MD 04/28/24 15:41:
Echocardiogram today shows normal left ventricular function strain/GLS - 23% no significant valve abnormalities and no pericardial effusion. Overall echo is unchanged from 04/18/2024
Addendum entered and electronically signed by Jarad Chowdhury MD 04/28/24 15:40:
Issues reviewed with both Dr. Leyva and Dr. Maxwell
Original Note:
Consultation
Consultation Request
Date/Time Consultation Requested: 04/28/2024 12:00
Date/Time Consultation Performed: 04/28/2024 at 12:00
Requesting Provider: Dr. Leyva
Performing Provider: Dr. Chowdhury
Reason for Consultation: Chest discomfort
Medical History
-
History of Present Illness:
48-year-old woman with past medical history of SCAD 2019, cardiomyopathy with recently diagnosed large cell lymphoma who had recent admission with intractable pain. Recently started chemotherapy with CHOP which she received last
week.Patient actually presented with neutropenic fever concern because had temp greater than 100 at home. She does report that she has had some chest discomfort for the last 3 days. Pressure sensation which is worse with deep breath worse when she
makes an effort in the bed to try to sit up worse with cough. Also feels worse with ambulation. She does have a cough whenever she tries to take a deep breath.
She has a past medical history noted above but had a recent echocardiogram with normal left ventricular function.
Recent chest x-ray with left pleural effusion. Chest ultrasound 04/28/2024 small left effusion report also suggested moderate amount of subpleural airspace consolidation left lower lobe
Past medical history
ECG 04/28/2024 normal sinus rhythm
Echocardiogram 04/18/2024 normal left ventricular function ejection fraction 70 to 75% global longitudinal strain was -22.8% mild mitral rotation mild tricuspid regurgitation no pericardial effusion
Spontaneous coronary dissection/scad 2019 obtuse marginal. Treated with medical therapy
cardiomyopathy
Recent diagnosis of large cell lymphoma (DLBCL)
Left pleural effusion
Chest CT 03/13/2024
IMPRESSION:
No CT evidence for pulmonary embolism. No aortic dissection.
Minimal stranding, scarring and/or atelectasis in the lung bases.
Abnormally enlarged spleen, and probable enlarged lymph nodes in the upper abdomen however only partially included on this exam.
Contrast-enhanced CT of the abdomen and pelvis is recommended to fully evaluate
Abdomen and pelvis CT 04/2024
1. MASSIVE MALIGNANT RETROPERITONEAL LYMPHADENOPATHY consistent with lymphoma. Severe lymphadenopathy in the gastrohepatic ligament and elias hepatis. Displacement of the abdominal organs and bowel loops by the massive lymphadenopathy which
appears to have mildly increased since 03/13/2024 suggesting interval progression of lymphoma.
2. Moderate splenomegaly.
3. Mild intrahepatic biliary dilatation.
4. New small volume of abdominal and pelvic ascites.
5. New small left and minimal right pleural effusions.
Social History
Tobacco: Non-Smoker
Family History
Family History: Reviewed & Not Pertinent
Allergies / Home Medications
Allergy/AdvReac Type Severity Reaction Status Date / Time
hazelnut Allergy Itching Verified 04/26/24 19:43
�Medication �Instructions �Recorded �Confirmed �Type
hydromorphone 4 mg tablet 4 mg PO Q6H PRN Pain #20 tabs 04/15/24 04/17/24 Rx
ondansetron 4 mg disintegrating 4 mg PO TIDPRN PRN nausea/vomiting 04/15/24 04/28/24 Rx
tablet #20 tabs
oxycodone 10 mg tablet 5 mg PO Q4HPRN PRN moderate pain 04/17/24 04/28/24 History
fentanyl 12 mcg/hr transdermal 1 patch transdermal Q72H #1 patch 04/21/24 04/28/24 Rx
patch
loratadine 10 mg tablet 10 mg PO DAILY 3 days #3 tabs 04/21/24 04/28/24 Rx
polyethylene glycol 3350 17 gram 17 g PO DAILYPRN PRN constipation 04/21/24 Rx
oral powder packet (HealthyLax) #30 ea
sennosides 8.6 mg tablet (Senna 8.6 mg PO BID #60 tabs 04/21/24 04/28/24 Rx
Laxative)
allopurinol 300 mg tablet 300 mg PO DAILY Gout 04/28/24 04/28/24 History
Review of Systems
-
All other systems: Negative unless noted (Patient does report back pain and hip pain worse when she is laying back so she tends not to sleep flat.)
Physical Exam
Vital Signs
Temp Pulse Resp BP Pulse Ox
98.2 F 97 16 114/77 96
04/28/24 07:55 04/28/24 07:55 04/28/24 07:55 04/28/24 07:55 04/28/24 09:28
Lab Results
04/28/24 06:02
04/28/24 06:02
Troponin I 0.097 ng/ml H* 04/28/24 12:17
Physical Exam
General: Other (Thin adult female who is pleasant awake alert and does not appear in distress.)
HEENT: Normocephalic, Anicteric and Other (Pupils are equal extract movements intact external ear normal exam unremarkable neck is without JVD no bruit)
Respiratory: Other (Decreased breath sounds at bases. Patient tends to cough when she tries to take a deep breath. No wheeze or rhonchi)
Cardiac: Regular Rhythm and Other (Early systolic murmur, 1/6, greatest left upper sternal border)
GI: Soft, Non Tender, Non Distended and Normal Bowel Sounds
Musculoskeletal: No Clubbing, No Cyanosis, No Edema and Other (No abnormalities of the nailbeds of the hands toe nailbeds are nonvisualized due to nail faroese.)
Skin: Warm, Dry and Rash (No rash)
Neuro: Awake, Alert and Oriented
Psych: Calm
Impression / Plan
-
.
Chest discomfort. Exact etiology unclear. Multiple factors may contribute. Her description of symptoms worse with inspiration, cough and positional change may suggest noncardiac chest discomfort. Pericarditis could be a consideration with some
of her descriptive factors although there is no ECG change. Despite the above still need to consider the possibility of ischemia with mild elevation in troponin although the trend of the troponins does not fit ischemia at this point and there are
no no changes. In addition it is possible that she has some sternal pain related to bone marrow which may be precipitated by growth factor.
-Monitor on telemetry
-Serial troponins
-Echo
-Optimize treatment hemoglobin
-Reviewed additional management of oncology issues and pain issues with oncology and hospitalist team.
.
Elevation in troponin. Exact etiology unclear. Troponins have been 0.1, 0.1 and 0.097. There is not been too much reduction over a 12-hour time span. At this point pattern is not a clear rise and fall suggestive of ischemia. Would consider
other factors which may contribute. Myopericarditis is a consideration. It is possible the patient has some troponin rise related to recent chemotherapy and doxorubicin. Patient does have a history of scad. Possibility of some coronary ischemia
in the setting of severe anemia would also be a consideration.
-Procedure plan noted above including echo
-Reviewed treatment of anemia with Dr. Maxwell who is considering additional PRBC.
.
History of cardiomyopathy.
-Left ventricular function normalized after that event
- Recent recent echo with normal left ventricular function. -
-Reassessment of left ventricular function since patient has received doxorubicin.
.
Fever/neutropenic fever initial concern.
-Antibiotics and evaluation as directed by primary team and oncology.
.
Lymphoma. Treatment as directed by oncology.
.
Anemia. Hemoglobin 8. Treatment as directed by oncology and primary team.
.
-
Data Reviewed
-
EKG: Report Reviewed by me
Radiology: Report Reviewed by me
Ultrasound: Report Reviewed by me
Medical Tests (Nuc Med, Echo etc): Report Reviewed by me
Labs: Labs Reviewed by me
--- NOTE | 2024-04-28 15:02 | CM ---
Addendum entered by Joan Anderson RN 04/28/24 15:14:
Plan provide PCP list.
Original Note:
Patient with Hx B-cell lymphoma with recent chemo with Dx Neutropenic sepsis, Persistent chest pressure. Room air. Receiving IV Abx, Duragesic Patch, Roxicodone prn. Per nurse assessment; ambulating in room/emery.
Spoke with patient's ;
the patient resides with her and 2 children (ages 12 & 15) in a 2 story house.
The patient has been independent in ADLs and ambulation, until 2 days ago when she became SOB and needed assistance from & son for climbing stairs.
The patient has no DME, prior VN.
says patient recently had admission for her first round of chemo, and is scheduled for next chemo on 05/10 at [facility].
PCP - patient has no PCP - would like PCP list.
Pharmacy - [facility] in [facility]
relays his father also has cancer and recently . He feels he is coping ok with his 's illness, and their children seem unaware of how sick their mother is which he feels is best.
CM continuing to follow.
Plan home.
[2024-04-28 15:21] VITALS: BP 107/77
[2024-04-28 18:22] LABS: Troponin I 0.077 ng/ml
[2024-04-28 19:47] VITALS: BP 116/72
[2024-04-28] MEDS: DULCOLAX 10 MG PO (20:55)
[2024-04-28 23:12] VITALS: BP 120/78
[2024-04-29 03:30] VITALS: BP 128/75
[2024-04-29] MEDS: ZOSYN 50 IV ×2 (05:26→12:41)
[2024-04-29 06:00] VITALS: BMI 19.5
[2024-04-29 07:10] VITALS: BP 116/76
[2024-04-29] MEDS: CLARITIN 10 MG PO (07:52)
[2024-04-29] MEDS: SENOKOT 8.6 MG PO ×2 (07:52→21:07)
[2024-04-29] MEDS: HEPARIN 5000 UNITS SC ×2 (07:53→21:06)
[2024-04-29] MEDS: ZYLOPRIM 300 MG PO (07:53)
[2024-04-29 11:10] VITALS: BP 122/75
--- NOTE | 2024-04-29 12:25 | W.PN.UPDATE ---
Update Note
Progress Note Update
We received a request for a thoracentesis. Imaging reviewed. Amount of fluid is insufficient to safely perfrom thoracentesis. Team aware
--- NOTE | 2024-04-29 12:29 | W.PN.CD ---
Today's Communication / Plan
-
-Suspect non-RI troponin. Possible that recent chemotherapy with doxorubicin could be a contributing factor. However with the above presentation with chest discomfort with pleuritic component and underlying malignancy PE would be within the
differential. Patient's D-dimer was elevated but it has been elevated previously
-Consider CT chest rule out PE
-No additional cardiac testing at this time would would recommend additional cardiology follow-up considering chemotherapy and prior history of cardiomyopathy will review with Dr. Baker. Likely follow-up in our office with Dr. Baker or .
[place]
-Treatment of anemia as directed by primary team
-Treatment of lymphoma as directed by oncology
Impression / Plan
-
.
Chest discomfort. Exact etiology unclear. Multiple factors may contribute. Her description of symptoms worse with inspiration, cough and positional change may suggest noncardiac chest discomfort. Pericarditis could be a consideration with some
of her descriptive factors although there is no ECG change. Despite the above still need to consider the possibility of ischemia with mild elevation in troponin although the trend of the troponins does not fit ischemia at this point and there are
no no changes. In addition it is possible that she has some sternal pain related to bone marrow which may be precipitated by growth factor.
-Monitor on telemetry
-Serial troponins
-Echo
-Optimize treatment hemoglobin
-Reviewed additional management of oncology issues and pain issues with oncology and hospitalist team.
.
Elevation in troponin. Exact etiology unclear. Troponins have been 0.1, 0.1 and 0.097. Echo with normal left ventricular function no pericardial effusion. Patient has some residual chest wall discomfort with palpation and there was some
suggestion that she may have some sternal pain related to bone marrow in discussion with oncology.
-Suspect non-RI troponin. Possible that recent chemotherapy with doxorubicin could be a contributing factor. However with the above presentation with chest discomfort with pleuritic component and underlying malignancy PE would be within the
differential. Patient's D-dimer was elevated but it has been elevated previously
-Consider CT chest rule out PE
.
History of cardiomyopathy.
-Left ventricular function normalized after that event
-Echo 04/20/2024 with normal left ventricular function
.
Pleural effusion. Small additional management as directed by primary team.
.
Fever/neutropenic fever initial concern.
-Antibiotics and evaluation as directed by primary team and oncology.
.
Lymphoma. Treatment as directed by oncology.
.
Anemia. Hemoglobin 8. Treatment as directed by oncology and primary team.
.
-
Physical Exam
Vital Signs/Labs
Vital Signs
Temp Pulse Resp BP Pulse Ox
97.9 F 94 16 116/76 93
04/29/24 07:10 04/29/24 07:10 04/29/24 07:10 04/29/24 07:10 04/29/24 07:10
04/28/24 04/29/24 04/30/24
06:59 06:59 06:59
Actual Weight 53.325 kg 53.24 kg
04/28/24 06:02
04/28/24 06:02
LAB Results
04/26/24 04/28/24 04/28/24
19:45 00:12 06:02
Troponin I Cancelled 0.126 H* 0.123 H*
04/28/24 04/28/24
12:17 17:50
Troponin I 0.097 H* 0.077 H*
Physical Exam
Constitutional: No acute distress
Cardiovascular: Rhythm & rate is regular
Respiratory: Respiratory effort normal
GI: Soft, Non tender and Normal bowel sounds
Neuro/Psych: Alert, Oriented and AO x 3
Other: Other (chest with midl soreness with palp. )
Data Reviewed
-
Date of Service: April 29, 2024
Medical Decision Making: Reviewed Test Results
Medical Tests (PFT, Pathology etc): Report Reviewed by me
Labs: Labs Reviewed by me
--- NOTE | 2024-04-29 14:29 | W.PN.ONC2 ---
Today's Communication / Plan
-
No objection to hospital discharge.
Await CT chest with PE protocol.
Our office will call patient to schedule follow-up with Dr. Us in the next 1 to 2 weeks.
Impression
Impression
Left pleural effusion with pleuritic discomfort
Neutropenic fever
Diffuse large B-cell lymphoma FISH pending status post cycle 1 CHOP
Pain syndrome
Plan
Plan
Note is made of today's ultrasound showing insufficient left pleural effusion.
Patient has significantly improved, representing response to treatment and/or resolution of Neulasta-related bone pain.
Await CT chest with PE protocol, exclude clot. She continues on subcu heparin 5000 units twice a day.
Blood counts adequate. Denying significant anemic symptoms, would not transfuse at the current hemoglobin of 8.
Troponin also noted to be improving.
Bone marrow biopsy resulted but FISH panel still pending. MYC is, however, negative by IHC
Subjective/Objective
Chief Complaint
Diffuse large cell lymphoma
Subjective
Pt states pain is much better today (mid-chest, back), has been steadily improving. It is currently well-controlled with fentanyl patch. She has not required any breakthrough medication since 04/27.
Vital Signs:
Vital Signs
Temp Pulse Resp BP Pulse Ox
97.8 F 89 16 122/75 98
04/29/24 11:10 04/29/24 11:10 04/29/24 11:10 04/29/24 11:10 04/29/24 11:10
Lab Results:
Laboratory Data
WBC 10.1 10^3/uL (4.8-10.8) 04/28/24 06:02
Hgb 8.0 g/dL (12.0-16.0) L 04/28/24 06:02
Plt Count 115 10^3/uL (130-400) L 04/28/24 06:02
eGFR > 60.00 04/28/24 06:02
Physical Exam
Awake, alert, non-toxic appearing
Review of Systems
Review of Systems
Constitutional: Reports Fatigue; Denies Fever
Head: Denies Sore Throat
Respiratory: Denies Dyspnea or Cough
Cardiovascular: Denies Chest Pain or Palpitations
Gastrointestinal: Denies Nausea/Vomiting or Diarrhea
Genitourinary: Denies Hematuria
Skin: Denies Rash or Pruritis
Neurological: Denies Headache or Numbness
Psychiatric: Denies Depression or Insomnia
Hem/Lymphatic: Reports Easy Bruising; Denies Night Sweats
[2024-04-29] MEDS: DULCOLAX 10 MG PO (15:55)
[2024-04-29 16:00] VITALS: BP 113/79
--- NOTE | 2024-04-29 16:07 | CM ---
Discharge Plan of Care: Home no needs and continue treatment as outpatient.
--- NOTE | 2024-04-29 16:38 | W.PN.ID1 ---
Date of Service
Date of Service: April 29, 2024
Today's Communication
- switched to cefdinir/doxycycline to complete 2 weeks of oral therapy
- follow up with oncology service
Assessment / Plan
Neutropenic Fever
Loculated L sided Pleural Effusion
Diffuse large B-cell lymphoma FISH pending status post cycle 1 CHOP
- blood cultures x2 no growth to date
- unable to produce a sputum
- infiltrate on CXR and small loculated effusion too small for drainage
- switched to cefdinir/doxycycline to complete 2 weeks of oral therapy
- follow up with oncology service; reviewed red flags with patient, she will call for follow up if any alarm symptoms
Chief Complaint
-: Other (Neutropenic Fever)
Subjective / Review of Systems
afebrile
bp stable
neutropenia resolved yesterday
cr stable
chest US: small loculated L pleural effusion, moderate amount of airspace consolidation
blood cultures no growth to date
IR reports too small an effusion to safely preform thoracentesis
Vital Signs / Physical Exam
Vital Signs
Vital Signs
Temp Pulse Resp BP Pulse Ox
98.2 F 98 18 113/79 97
04/29/24 16:00 04/29/24 16:00 04/29/24 16:00 04/29/24 16:00 04/29/24 16:00
Physical Exam
Constitutional: No Acute Distress
Cardiovascular: Regular Rate and S1/S2; Negative Murmur or Rub
Pulmonary: Clear and Symmetric; Negative Wheezes or Rales
Gastrointestinal: Soft, Non Tender, Non Distended and Normal Bowel Sounds
Skin: Warm and Dry; Negative Rash or Jaundice
Objective Data
Lab Data
Lab Results
04/28/24 06:02
04/28/24 06:02
Estimated Creat Clear 96 ml/min 04/28/24 06:02
Lactic Acid 1.7 mmol/L (0.7-2.0) 04/26/24 20:36
Total Bilirubin 0.5 mg/dl (0.2-1.3) 04/27/24 06:41
AST 17 U/L (14-36) 04/27/24 06:41
ALT 13 U/L (0-35) 04/27/24 06:41
Alkaline Phosphatase 57 U/L (38-126) 04/27/24 06:41
Most recent labs reviewed.
Micro Results:
04/26/24 22:14 Blood Culture - Preliminary
Blood/Venous No Growth in 48 hours- Final report to follow
04/26/24 20:36 Blood Culture - Preliminary
Blood/Venous No Growth in 48 hours- Final report to follow
--- NOTE | 2024-04-29 16:52 | W.PN.UPDATE ---
Addendum entered and electronically signed by Jarad Chowdhury MD 04/29/24 17:40:
Reviewed ith Dr Casey . also if CT unremarkable then would recommend ASA 81mg a day. Onc would also need to be ok with it.
Original Note:
Update Note
Progress Note Update
Issues reviewed with oncology team Dr. Villarreal. Awaiting results of CT. If unremarkable then would consider addition of low-dose beta-juan. Toprol-XL 25 mg a day. Reviewed issues with cardio oncology. Possible that troponin could suggest
patient in higher risk for cardiotoxicity with doxorubicin. Will start with low-dose beta-juan I will she see how she tolerates this. If it turns out down the line there is additional blood pressure and then KWAME inhibitor could be added.
Patient will have additional cardiology follow-up/cardio oncology follow-up.. Will arrange with Dr. Baker.
--- NOTE | 2024-04-29 17:44 | W.PN.HOSP.TC ---
Addendum entered and electronically signed by Ye Infante MD 04/29/24 22:13:
Attending Addendum-
I saw and evaluated the patient. I reviewed the resident�s note and agree with findings and plan as documented in the resident�s note. Sub: seen with family present, feels improved, denies CP palps fevers Full 12 point ROS reviewed and negative
except as documented Exam: Vitals reviewed in chart GEN-NAD heart tachycardic regular abd soft Lungs decreased LLL LE no edema
#Neutropenic sepsis:
- possibly related to LLL empyema
- ANC of 100 on admission. Neutropenia has resolved.
- possibly due to left-sided empyema
- chest U/S -not sufficient fluid for thora
- BCxs NGTD
- ID following
- DC zosyn
- start doxy and cefdinir x 2 weeks
#Persistent chest pressure:
-Trops minimally elevated and flat
-h/o CAD with spontaneous coronary artery dissection
-repeat echo 04/28-Normal left ventricular function.
Estimated ejection fraction is 65 to 70%
GLS is -23.0%.
No significant valvular abnormalities.
-suspect nonischemic myocardial injury
-continue asa low dose on DC
-D/W cardiology- check CT chest r/o PE- neg for PE LLL effusion larger
-t/c low dose BB on DC
# History of Diffuse large B-cell lymphoma:
-FISH pending, s/p cycle 1 CHOP (1 week [employer])
-Continue allopurinol
-Continue oxycodone, Dilaudid, fentanyl patch
-Continue bowel regimen
-ONC following- appreciate input
Other problems:
Chronic anemia
Pancytopenia (POA)
Peripartum cardiomyopathy
History of asymptomatic PVCs
Dispo DC in am
FULL/heparin
Time spent coordinating care, review of plan of care with resident, personally reviewed records in EMR, med rec, consults, notes, labs, radiology, d/w nursing family/POA and Dr. Chowdhury � 59 mins
Original Note:
Today's Communication/Plan
-
Patient will get a chest CT to rule out PE and depending on the results, will be free to leave with oral antibiotic treatment. Patient has been improving as her symptoms have been mostly resolved.
Assessment / Plan
Assessment / Plan
Assessment:
48 year old female with a history of large B cell lymphoma came to the office due to fever and chest pain on 04/26. Currently patient's symptoms have improved greatly and she currently has no fever or chest pain.
Plan:
Neutropenic sepsis:
-Patient had ANC of 1.9 on admission. Neutropenia has resolved as levels are now 10.1.
-Possibly could have been due to left-sided empyema
-ID Consulted- Switched Abx to Cefdinir/Doxycycline for 2 weeks of oral therapy
-IR Consulted for Thoracentesis and amount of fluid was found insufficient to safely perform thoracentesis.
-Patient will continue IVFs
Persistent chest pressure:
-Troponin levels have started to drop. They are minimally elevated and flat (follow third trop)
-Patient sent for Chest CT to rule out pulmonary embolism
-Patient seen by Resident Doctor, will continue to be monitored on telemetry. Cardiology touch base with hematology.
-If CT Chest is negative for PE diagnosis, will start patient on Metoprolol ER
-Might be related to recent chemotherapy with doxorubicin
History of Diffuse large B-cell lymphoma:
-FISH pending, s/p cycle 1 CHOP (1 week [employer])
-Bone Marrow Biopsy showed MYC negative by IHC
-Patient will continue allopurinol
-Patient will continue oxycodone, Dilaudid, fentanyl patch as per Oncology
-ONC following
FULL/heparin
Anticipated Discharge: 24 - 48 hours
Subjective/Interval History
-
Date of Service: April 29, 2024
Patient has been feeling much better and had no adverse events overnight
Objective Data
-
Vital Signs:
Vital Signs
Temp Pulse Resp BP Pulse Ox
98.2 F 98 18 113/79 98
04/29/24 16:00 04/29/24 16:00 04/29/24 16:00 04/29/24 16:00 04/29/24 17:05
I&O
04/28/24 04/29/24 04/30/24
06:59 06:59 06:59
Intake Total 3820 / 3820 2100 / 2100 850 / 850
Balance 3820 / 3820 2100 / 2100 850 / 850
Review of Systems
-
Respiratory: Denies Cough or Trouble Breathing
Cardiac: Denies Chest Pain or Palpitations
Physical Exam
-
General: Well Developed, Well Nourished and No Apparent Distress
Respiratory: Clear to Auscultation
Cardiac: Regular Rhythm and Murmur (Slight murmur noted)
Musculoskeletal: No Cyanosis and No Edema
Skin: Warm and Normal Turgor
Neuro: Awake, Alert, Oriented and AO x 3
Data Reviewed
-
Diagnostic Radiology: Report Reviewed by me
CT Scan: Report Reviewed by me
Medical Tests (Nuc Med, Echo etc): Report Reviewed by me
Labs: Labs Reviewed by me, Discussed with Physician and Discussed with Patient
[2024-04-29] MEDS: ZOFRAN 4 MG IV (19:40)
[2024-04-29 19:55] VITALS: BP 114/74
[2024-04-29] MEDS: VIBRAMYCIN 100 MG PO (21:06)
[2024-04-29] MEDS: OMNICEF 300 MG PO (21:07)
[2024-04-29] MEDS: DURAGESIC 12 MCG/HR PATCH 1 PATCH TRANSDERM (23:27)
[2024-04-29 23:38] VITALS: BP 119/78
[2024-04-30 03:28] VITALS: BP 130/81
[2024-04-30 06:00] VITALS: BMI 19.2
[2024-04-30 07:15] VITALS: BP 121/79
[2024-04-30] MEDS: ZYLOPRIM 300 MG PO (09:13)
[2024-04-30] MEDS: CLARITIN 10 MG PO (09:13)
[2024-04-30] MEDS: SENOKOT 8.6 MG PO (09:13)
[2024-04-30] MEDS: VIBRAMYCIN 100 MG PO (09:13)
[2024-04-30] MEDS: OMNICEF 300 MG PO (09:14)
[2024-04-30] MEDS: HEPARIN 5000 UNITS SC (09:14)
[2024-04-30 09:21] LABS: Hematocrit 23.2 % (37.0-47.0); Hemoglobin 8.6 g/dL (12.0-16.0); Mean Corp Hgb Conc. 37.1 g/dL (33.0-37.0); Mean Corpuscular Hgb 31.9 pg (27.0-31.0); Mean Corpuscular Volume 85.9 fL (81.0-99.0); Mean Platelet Volume 11.1 fL (7.4-10.4); Platelet Count 118 10^3/uL (130-400); Red Cell Dist. Width 13.9 % (11.5-14.5); White Blood Cell Count 28.3 10^3/uL (4.8-10.8)
[2024-04-30 09:47] LABS: Anisocytosis Slight; Band Neutrophils 24 % (0-3); Eosinophils 1 % (0-6); Hypochromasia 1+; Lymphocytes 13 % (20-51); Metamyelocytes 7 % (-); Monocytes 4 % (2-9); Myelocytes 4 % (-); Normal RBC Morphology No; Ovalocytes 1+; Platelets Checked Yes; Polychromasia Slight; Segmented Neutrophils 47 % (42-75); Total Cells Counted 100
[2024-04-30 09:59] LABS: ALT (SGPT) 11 U/L (0-35); AST (SGOT) 33 U/L (14-36); Albumin 3.4 g/dl (3.5-5.0); Alkaline Phosphatase 120 U/L (38-126); Blood Urea Nitrogen 2 mg/dl (7-17); Carbon Dioxide 32 mmol/L (22-30); Chloride 102 mmol/L (98-107); Estimated Creatinine Clearance 95 ml/min; Glucose 90 mg/dl (70-99); Potassium 3.2 mmol/L (3.5-5.1); Sodium 138 mmol/L (135-145); Total Bilirubin 0.3 mg/dl (0.2-1.3); Total Protein 5.6 g/dl (6.3-8.2); eGFR > 60.00
[2024-04-30] MEDS: TOPROL XL 25 MG PO (10:50)
[2024-04-30] MEDS: KCL 40 MEQ PO (10:50)
[2024-04-30 11:10] VITALS: BP 113/75
--- NOTE | 2024-04-30 12:48 | PN.CDI ---
CDI
- -
CDI:
Physician Documentation Request
Admit Date: 04/26/24 21:39
Dear Doctor Gary,
Patient admitted with neutropenic sepsis. Troponin noted to be elevated.
Hospitalist progress notes states 'suspected nonischemic myocardial injury'
04/29 cardiology note states 'Suspect non-SD troponin'
In an attempt to clarify potentially conflicting documentation , please clarify the etiology of the elevated troponin:
Non ischemic myocardial injury
Non SD troponin elevation
Other
Use of terms such as suspected, likely, concern for, or probable (associated with a specific diagnosis that is being evaluated, monitored, or treated as if it exists) are acceptable and can be coded in the inpatient setting, when documented at the
time of discharge.
Thank you,
Nickie Moyer RN, BSN
CDI Specialist
tiger text
Please use your independent medical judgment in providing your response.
--- NOTE | 2024-04-30 14:49 | CM ---
Discharge Plan of Care: Home with no needs. Continue treatment as outpatient.
[2024-04-30 15:15] VITALS: BP 115/79
--- NOTE | 2024-04-30 15:37 | W.DCSUMMARY ---
Addendum entered and electronically signed by Ye Infante MD 05/01/24 00:26:
read reviewed and agree
Douglas Infante MD
Original Note:
Documented by User: Tristan Vega MD, Resident 04/30/24 20:12
Discharge Summary
Discharge Data
Date of Admission: 04/26/24
Date of Discharge: 04/30/24
-
Pending Results: No
Hospital Course
Principal admission diagnosis: Neutropenia secondary to sepsis
Conditions prior to admission: Diffuse Large B-Cell Lymphoma, Chronic Anemia, Pancytopenia, Peripartum Cardiomyopathy, Asymptomatic PVCs
Hospital Course:
Patient was admitted on 04/26 to 04/30 for Neutropenia secondary to sepsis s/p Chemotherapy with Doxorubicin for her Large B-Cell Lymphoma. During her hospital course she was found to be Neutropenic- ANC 0.1. Patient was started on Zosyn and ID was
consulted. Patient was then switched to oral antibiotics Cefdinir/Doxycycline as her Neutropenia resolved. Patient started feeling better and more energetic as treatment continued. Patient will follow up with her Oncologist after discharge.
Discharge Plan
-
Patient Disposition: Home (Routine Discharge)
Discharge Diagnosis/Procedures: Neutropenia and Sepsis
Condition: Fair
Diet: No restrictions
Activity: No restrictions
Driving Restrictions: As prior to admission
Bathing Restrictions: None
Blood Work: CBC- In two weeks
Referrals:
Nathan Maxwell DO [Active] - (Follow up within 1 week)
Colin Baker MD [Active] - 05/06/24 11:00 am
(Cardio/Oncology follow up
This is at the [facility] in [place])
NONE,* [Family Provider] -
Prescriptions:
New
doxycycline hyclate 100 mg Capsule
100 mg PO Q12 12 Days Qty: 25 0RF
metoprolol succinate 25 mg Tablet Extended Release 24 Hr
25 mg PO DAILY 30 Days Qty: 30 0RF
cefdinir 300 mg Capsule
300 mg PO Q12 12 Days Qty: 25 0RF
Continued
ondansetron 4 mg tablet,disintegrating
4 mg PO TIDPRN PRN (Reason: nausea/vomiting) Qty: 20 0RF
hydromorphone 4 mg tablet
4 mg PO Q6H PRN (Reason: Pain) Qty: 20 0RF
Patient Comments:
04/17/2024: Spouse states pharmacy didn't have in stock
oxycodone 10 mg tablet
5 mg PO Q4HPRN PRN (Reason: moderate pain)
Patient Comments:
04/17/2024: last filled 04/05/24, 150 tabs for 20 days from [facility] [place]
loratadine 10 mg Tablet
10 mg PO DAILY 3 Days Qty: 3 0RF
Rx Instructions:
Start on April 22, 2024
sennosides [Senna Laxative] 8.6 mg Tablet
8.6 mg PO BID Qty: 60 0RF
polyethylene glycol 3350 [HealthyLax] 17 gram Powder In Packet
17 g PO DAILYPRN PRN (Reason: constipation) Qty: 30 0RF
fentanyl 12 mcg/hr Patch 72 Hour
1 patch transdermal Q72H Qty: 1 0RF
Rx Instructions:
Last filled 04/26/24 #4 x12 days supply
allopurinol 300 mg tablet
300 mg PO DAILY
Discharge Orders:
Discharge Patient (As Directed); Ordered 04/30/24
Ordered By: Tristan Vega
Discharge Date and Time
Discharge Date/Time: 04/30/24 17:38
Print Language: SWISS

Documented by User: Ye Infante MD 05/01/24 00:18
Discharge Summary
Discharge Data
Date of Admission: 04/26/24
Date of Discharge: 05/01/24
Discharge Plan
-
Patient Disposition: Home (Routine Discharge)
Discharge Diagnosis/Procedures: Neutropenia and Sepsis
Condition: Fair
Diet: No restrictions
Activity: No restrictions
Driving Restrictions: As prior to admission
Bathing Restrictions: None
Blood Work: CBC- In two weeks
Referrals:
Nathan Maxwell DO [Active] - (Follow up within 1 week)
Colin Baker MD [Active] - 05/06/24 11:00 am
(Cardio/Oncology follow up
This is at the [facility] in [place])
NONE,* [Family Provider] -
Prescriptions:
New
doxycycline hyclate 100 mg Capsule
100 mg PO Q12 12 Days Qty: 25 0RF
metoprolol succinate 25 mg Tablet Extended Release 24 Hr
25 mg PO DAILY 30 Days Qty: 30 0RF
cefdinir 300 mg Capsule
300 mg PO Q12 12 Days Qty: 25 0RF
Continued
ondansetron 4 mg tablet,disintegrating
4 mg PO TIDPRN PRN (Reason: nausea/vomiting) Qty: 20 0RF
hydromorphone 4 mg tablet
4 mg PO Q6H PRN (Reason: Pain) Qty: 20 0RF
Patient Comments:
04/17/2024: Spouse states pharmacy didn't have in stock
oxycodone 10 mg tablet
5 mg PO Q4HPRN PRN (Reason: moderate pain)
Patient Comments:
04/17/2024: last filled 04/05/24, 150 tabs for [facility] days from [facility] [place]
loratadine 10 mg Tablet
10 mg PO DAILY 3 Days Qty: 3 0RF
Rx Instructions:
Start on April 22, 2024
sennosides [Senna Laxative] 8.6 mg Tablet
8.6 mg PO BID Qty: 60 0RF
polyethylene glycol 3350 [HealthyLax] 17 gram Powder In Packet
17 g PO DAILYPRN PRN (Reason: constipation) Qty: 30 0RF
fentanyl 12 mcg/hr Patch 72 Hour
1 patch transdermal Q72H Qty: 1 0RF
Rx Instructions:
Last filled 04/26/24 #4 x12 days supply
allopurinol 300 mg tablet
300 mg PO DAILY
Discharge Orders:
Discharge Patient (As Directed); Ordered 04/30/24
Ordered By: Tristan Vega
Discharge Date and Time
Discharge Date/Time: 04/30/24 17:38
Print Language: SWISS
--- NOTE | 2024-04-30 15:49 | CM ---
Patient has been medically cleared for discharge to home with no additional skilled services. will transport home.
--- NOTE | 2024-04-30 17:08 | W.PN.ID1 ---
Date of Service
Date of Service: April 30, 2024
Today's Communication
- switched to cefdinir/doxycycline to complete 2 weeks of oral therapy 04/29-05/12
- follow up with oncology service; reviewed red flags with patient, she will call for follow up if any alarm symptoms
Assessment / Plan
Neutropenic Fever
Loculated L sided Pleural Effusion
Diffuse large B-cell lymphoma FISH pending status post cycle 1 CHOP
- blood cultures x2 no growth to date
- unable to produce a sputum
- infiltrate on CXR and small loculated effusion too small for drainage
- switched to cefdinir/doxycycline to complete 2 weeks of oral therapy 04/29-05/12
- follow up with oncology service; reviewed red flags with patient, she will call for follow up if any alarm symptoms
Chief Complaint
-: Other (Neutropenic Fever)
Subjective / Review of Systems
afebrile
had neulasta per oncology - likely contributing to current leukocytosis
no cough, chest pain, shortness of breath or pleuritic pain; no recent pneumonia
Vital Signs / Physical Exam
Vital Signs
Vital Signs
Temp Pulse Resp BP Pulse Ox
98.1 F 95 16 115/79 97
04/30/24 15:15 04/30/24 15:15 04/30/24 15:15 04/30/24 15:15 04/30/24 15:15
Physical Exam
Constitutional: No Acute Distress
Cardiovascular: Regular Rate and S1/S2; Negative Murmur or Rub
Pulmonary: Clear and Symmetric; Negative Wheezes or Rales
Gastrointestinal: Soft, Non Tender, Non Distended and Normal Bowel Sounds
Skin: Warm and Dry; Negative Rash or Jaundice
Objective Data
Lab Data
Lab Results
04/30/24 08:58
04/30/24 08:58
Estimated Creat Clear 95 ml/min 04/30/24 08:58
Lactic Acid 1.7 mmol/L (0.7-2.0) 04/26/24 20:36
Total Bilirubin 0.3 mg/dl (0.2-1.3) 04/30/24 08:58
AST 33 U/L (14-36) 04/30/24 08:58
ALT 11 U/L (0-35) 04/30/24 08:58
Alkaline Phosphatase 120 U/L (38-126) 04/30/24 08:58
Most recent labs reviewed.
Micro Results:
04/26/24 22:14 Blood Culture - Preliminary
Blood/Venous No Growth in 72 hours- Final report to follow
04/26/24 20:36 Blood Culture - Preliminary
Blood/Venous No Growth in 72 hours- Final report to follow
Care Review
Plan reviewed with: Physician (Dr Edgar nicholas )
--- NOTE | 2024-04-30 17:19 | PTCARENOTE ---
Patient discharged home. This RN removed patient's IV and telemetry pack and reviewed discharge medications and instructions with patient; patient verbalized understanding. This RN confirmed with patient that she does not have a port in place;
patient states she is supposed to get one placed soon. Patient confirmed pharmacy on file is open/she is able to get abx prescriptions tonight prior to discharge. Patient dressed independently and gathered belongings in room, taken down to spouse's
car via staff escort and wheelchair.
--- NOTE | 2024-04-30 18:49 | W.PN.HOSP.TC ---
Addendum entered and electronically signed by Tristan Vega MD, Resident 05/07/24 13:26:
Neutropenic sepsis, possible left sided empyema, no sufficient fluid for thoracentesis. Hence the probable diagnosis of empyema could not be ruled in or ruled out.
Consider still a possible diagnosis.
Addendum entered and electronically signed by eY Infante MD 05/01/24 00:24:
Attending Addendum-
I saw and evaluated the patient. I reviewed the resident�s note and agree with findings and plan as documented in the resident�s note. Sub: seen with family present, feels greatly improved, denies CP palps fevers wants to go home Full 12 point ROS
reviewed and negative except as documented Exam: Vitals reviewed in chart GEN-NAD heart RRR 12/05 Sm @ LUSB abd soft Lungs decreased LLL LE no edema
#Neutropenic sepsis:
- Neutropenia has resolved.
- possibly due to left-sided empyema
- chest U/S -not sufficient fluid for thora
- BCxs NGTD
- ID following
- DC zosyn
- cont doxy and cefdinir x 2 weeks
# Leukocytosis
- d/w onc- likely delayed effect from neulasta 2 weeks ago
- f/u as OP
# Hypokalemia-
repleat
f/u as OP
#Nonischemic myocardial injury
-Trops minimally elevated and flat
-h/o CAD with spontaneous coronary artery dissection
-repeat echo 04/28-Normal left ventricular function.
Estimated ejection fraction is 65 to 70%
GLS is -23.0%.
No significant valvular abnormalities.
-asa low dose per PCP as OP
-CT chest r/o PE 03/30- neg for PE, LLL effusion larger
-new metoprolol on DC
# History of Diffuse large B-cell lymphoma:
-FISH pending, s/p cycle 1 CHOP (1 week [employer])
-Continue allopurinol
-Continue oxycodone, Dilaudid, fentanyl patch
-Continue bowel regimen
-ONC following- appreciate input - karan warren dc
Other problems:
Chronic anemia
Pancytopenia (POA)
Peripartum cardiomyopathy
History of asymptomatic PVCs
Dispo home today
FULL/heparin
Time spent coordinating care, DC planning, review of DC plan of care with resident, transition of care, review of records, med rec/scripts sent electronically, consults, notes, d/w consultants, nursing, family, and CM� 37 mins
Original Note:
Today's Communication/Plan
-
Plan for discharge on oral antibiotics for 2 weeks.
Assessment / Plan
Assessment / Plan
Assessment:
48 year old female with a history of large B cell lymphoma came to the office due to fever and chest pain on 04/26. Currently patient's symptoms have improved greatly and she currently has no fever or chest pain.
Plan:
Neutropenic sepsis:
-Patient had ANC of 1.9 on admission. Neutropenia has resolved as levels are now 10.1.
-Possibly could have been due to left-sided empyema
-ID Consulted- Switched Abx to Cefdinir/Doxycycline for 2 weeks of oral therapy
-IR Consulted for Thoracentesis and amount of fluid was found insufficient to safely perform thoracentesis.
-Patient will continue IVFs
-Continue treatment as directed by ID
Persistent chest pressure:
-Troponin levels have started to drop. They are minimally elevated and flat (follow third trop)
-Patient sent for Chest CT to rule out pulmonary embolism
-Patient seen by [employer], will continue to be monitored on telemetry. Cardiology touch base with hematology.
-If CT Chest is negative for PE diagnosis, will start patient on Metoprolol ER
-Might be related to recent chemotherapy with doxorubicin
Elevated Troponin-
-0.123 (04/28), Subsequent values lower 0.097, 0.077
-Non ischemic myocardial injury likely secondary to sepsis in the setting of neutropenia
History of Diffuse large B-cell lymphoma:
-FISH pending, s/p cycle 1 CHOP (1 week [employer])
-Bone Marrow Biopsy showed MYC negative by IHC
-Patient will continue allopurinol
-Patient will continue oxycodone, Dilaudid, fentanyl patch as per Oncology
-ONC following
FULL/heparin
Anticipated Discharge: Today
Subjective/Interval History
-
Date of Service: April 30, 2024
Patient was feeling well and energetic this morning. Patient reported no adverse events overnight.
Objective Data
-
Labs:
Laboratory Results
04/30/24
08:58
WBC 28.3 H
Hgb 8.6 L
Hct 23.2 L
Plt Count 118 L
Sodium 138
Potassium 3.2 L
Chloride 102
Carbon Dioxide 32 H
BUN 2 L
Creatinine 0.6
Glucose 90
Calcium 9.0
Total Bilirubin 0.3
AST 33
ALT 11
Alkaline Phosphatase 120
Vital Signs:
Vital Signs
Temp Pulse Resp BP Pulse Ox
98.1 F 95 16 115/79 97
04/30/24 15:15 04/30/24 15:15 04/30/24 15:15 04/30/24 15:15 04/30/24 15:15
I&O
04/29/24 04/30/24 05/01/24
06:59 06:59 06:59
Intake Total 2099 850 / 850
Output Total 100 / 100
Balance 2099 750 / 750
Review of Systems
-
History Source: Patient
Constitutional: Denies Fever, Chills or Weakness
Respiratory: Denies Cough or Wheezing
Cardiac: Denies Chest Pain, Diaphoresis or Palpitations
Neuro: Denies Weakness
Physical Exam
-
General: Well Developed, Well Nourished and No Apparent Distress
Respiratory: Clear to Auscultation and Non Labored Respirations
Cardiac: Regular Rhythm, S1/S2 and Murmur
Musculoskeletal: No Clubbing, No Cyanosis and No Edema
Skin: Warm and Dry
Neuro: Awake, Alert, Oriented and AO x 3
Psych: Calm
Data Reviewed
-
CT Scan: Report Reviewed by me, Discussed with Physician and Discussed with Patient
Labs: Labs Reviewed by me, Discussed with Physician and Discussed with Patient
--- NOTE | 2024-05-03 08:19 | PN.CDI ---
CDI
- -
CDI:
Physician Documentation Request
Admit Date: 04/26/24 21:39
Dear Doctor Gary,
Hospitalist progress notes states 'neutropenic sepsis... poss left sided empyema'
Please clarify the following:
____ - empyema was present.
____ - empyema was ruled out
____ - empyema is still a likely, suspected, probable diagnosis
____ - Other
Use of terms such as suspected, likely, concern for, or probable (associated with a specific diagnosis that is being evaluated, monitored, or treated as if it exists) are acceptable and can be coded in the inpatient setting, when documented at the
time of discharge.
Thank you,
Nickie Moyer RN, BSN
CDI Specialist
tiger text
Please use your independent medical judgment in providing your response.
== END 2024-04-30 17:38 | disposition home or self-care (01) | DRG 871 ==
LOC: 2 NORTH 21:39
PROVIDERS: Nurse Practitioner; Nurse Practitioner Gerontology; ADMITTING PHYSICIAN Hospitalist; ATTENDING PHYSICIAN Family Medicine; CONSULT PHYSICIAN Internal Medicine Cardiovascular Disease; CONSULT PHYSICIAN Internal Medicine Hematology & Oncology; CONSULT PHYSICIAN Student in an Organized Health Care Education/Training Program; EMERGENCY PHYSICIAN Student in an Organized Health Care Education/Training Program
DX: A41.9 Sepsis, unspecified organism (principal); J86.9 Pyothorax without fistula; C83.30 Diffuse large B-cell lymphoma, unspecified site; J90 Pleural effusion, not elsewhere classified; R18.8 Other ascites; I42.8 Other cardiomyopathies; D61.818 Other pancytopenia; I5A Non-ischemic myocardial injury (non-traumatic); M54.50 Low back pain, unspecified; E87.6 Hypokalemia; D64.9 Anemia, unspecified; R16.1 Splenomegaly, not elsewhere classified; G89.3 Neoplasm related pain (acute) (chronic); R51.9 Headache, unspecified; D70.3 Neutropenia due to infection; I25.10 Atherosclerotic heart disease of native coronary artery without angina pectoris; R50.81 Fever presenting with conditions classified elsewhere; Z92.21 Personal history of antineoplastic chemotherapy; I25.2 Old myocardial infarction; Z83.3 Family history of diabetes mellitus; Z91.018 Allergy to other foods
CPT/HCPCS: 93308; 71275; 76604; 80048; 80053; 82728; 83540; 83550; 83605; 83615; 84484; 85025; 87040; 93005; 93321; 93325; 96361; 96374; 96375; 99284; Q9967

== ENCOUNTER → 2024-05-06 07:45 | Outpatient (REF) | payer OTHER, BC, SELFPAY ==
[2024-05-06 08:15] VITALS: BP 103/77; BP_SYST 95
[2024-05-06] MEDS: ANCEF 10 IV (08:27)
[2024-05-06 10:00] VITALS: BP 110/68; BP_SYST 83
[2024-05-06 10:17] VITALS: BP 111/77
== END ==
LOC: RADI 07:45
PROVIDERS: ATTENDING PHYSICIAN Internal Medicine Hematology & Oncology
DX: C83.30 Diffuse large B-cell lymphoma, unspecified site (principal)
CPT/HCPCS: 36561; 76937; 77001; 99152; 99153; C1788

== ENCOUNTER → 2024-06-12 11:39 | Outpatient (REF) | payer OTHER, BC, SELFPAY | LOC: PET 11:39 | PROVIDERS: ATTENDING PHYSICIAN Registered Nurse | DX: C83.30 Diffuse large B-cell lymphoma, unspecified site (principal) | CPT/HCPCS: 78815; A9552 ==

== ENCOUNTER → 2024-10-14 09:33 | Outpatient (REF) | payer OTHER, BC, SELFPAY | LOC: RCS 09:33 | PROVIDERS: ATTENDING PHYSICIAN Internal Medicine; FAMILY PHYSICIAN Internal Medicine Hematology & Oncology | DX: Z86.79 Personal history of other diseases of the circulatory system (principal); I25.42 Coronary artery dissection; C83.30 Diffuse large B-cell lymphoma, unspecified site; I49.3 Ventricular premature depolarization; I25.2 Old myocardial infarction | CPT/HCPCS: 93306; 93356 ==

== ENCOUNTER → 2024-11-11 09:22 | Outpatient (REF) | payer BC, SELFPAY | LOC: RCS 09:22 | PROVIDERS: ATTENDING PHYSICIAN Internal Medicine; FAMILY PHYSICIAN Internal Medicine Hematology & Oncology | DX: Z86.79 Personal history of other diseases of the circulatory system (principal); I25.42 Coronary artery dissection; C83.30 Diffuse large B-cell lymphoma, unspecified site; I49.3 Ventricular premature depolarization; I25.2 Old myocardial infarction | CPT/HCPCS: 93306; 93356 ==

== ENCOUNTER → 2025-02-28 09:23 | Outpatient (REF) | payer OTHER, SELFPAY ==
[2024-12-23 10:52] LABS: HCG, Serum Qualitative Screen Negative
== END ==
LOC: RCS 09:23
PROVIDERS: Radiology Diagnostic Radiology; ATTENDING PHYSICIAN Internal Medicine; FAMILY PHYSICIAN Internal Medicine Hematology & Oncology
DX: I25.42 Coronary artery dissection (principal); C83.30 Diffuse large B-cell lymphoma, unspecified site; I49.3 Ventricular premature depolarization; I25.2 Old myocardial infarction; Z36.9 Encounter for antenatal screening, unspecified
CPT/HCPCS: 36415; 84703; 93306; 93356

== ENCOUNTER → 2025-06-18 08:52 | Outpatient (REF) | payer OTHER, SELFPAY ==
[2025-06-18 09:14] LABS: Glucose 89 mg/dl (70-99)
== END ==
LOC: PET 08:52
PROVIDERS: ATTENDING PHYSICIAN Internal Medicine Hematology & Oncology
DX: C83.30 Diffuse large B-cell lymphoma, unspecified site (principal); R59.0 Localized enlarged lymph nodes
CPT/HCPCS: 36415; 82947